=== PATIENT | female | born 1935 | race Caucasian/White ===

== ENCOUNTER → 2017-08-04 | Outpatient (CLI) | payer OTHER ==
[~2017-08-04] MED LIST: ALBUAER19 INH; ASPI-461 PO; ATOR10TA82 PO; CALC-20 PO; MILK200C PO; MULTCAP42 PO; NSNN50; OMEG1400 PO; OMEP40CA PO
--- NOTE | 2017-08-04 14:24 | MAMMOGRAPHY REPORT ---
BILATERAL DIGITAL DIAGNOSTIC MAMMOGRAM TOMOSYNTHESIS WITH CAD AND TARGETED RIGHT ULTRASOUND: 8 CLINICAL HISTORY: 82-year-old woman presents with a complaint of "soreness to touch" and "tenderness" in the far superior right upper outer breast/axillary region. She noticed the soreness began around the time of an ear infection of the right ear. She reports feeling much better currently. No defin ite lumps or evidence of skin erythema. Also due for bilateral mammography. TECHNIQUE: Bilateral breast tomosynthesis in addition to standard 2D mammography was performed. Curre nt study was also evaluated with a Computer Aided Detection (CAD) system. COMPARISON: Comparison is made to exams dated: 11/22/2015 mammogram, 08/09/2013 mammogram, 07/06/2012 m ammogram, 02/26/2011 mammogram - [facility], 10/23/2008, and 10/11/2007. BREAST COMPOSITION: There are scattered areas of fibroglandular density in both breasts. FINDINGS: There are mild vascular calcifications and a few benign coarse calcifications in the breast s. No suspicious mass, architectural distortion or cluster of suspicious microcalcifications is seen . Targeted ultrasound was performed in the areas of tenderness and soreness near the right axilla. In the areas of concern, sonographically normal subcutaneous tissues and pectoralis muscles are identifi ed. There is no evidence of suspicious lymphadenopathy, suspicious mass or drainable fluid collectio n. IMPRESSION: ACR BI-RADS CATEGORY 2: BENIGN, TARGETED ULTRASOUND ACR BI-RADS CATEGORY 2: BENIGN 1. There is no suspicious mammographic or targeted sonographic abnormality in the areas of soreness a nd tenderness near the right axilla. Therefore, continued clinical follow-up is recommended, as biop sy of a clinically suspicious mass should not be precluded by negative imaging. 2. Stable bilateral mammograms, without mammographic evidence of malignancy. Recommend routine scre ening mammography in 1 year. These results and recommendations were discussed with the patient at the time of the exam. Approximately 10% of breast cancers are not detected with mammography. A negative mammographic report should not delay biopsy if a clinically suggestive mass is present. Cira Finn M.D. ay/:08/04/2017 14:16:13 Weatherization Technician: Nila LEYVA(Gin)(Sabrina), [facility] letter sent: Normal /2 BI-RADS Code: ACR BI-RADS Category 2: Benign Ultrasound BI-RADS: ACR BI-RADS Category 2: Benign
== END | disposition home or self-care (01) ==
LOC: C.MAMM 13:26
PROVIDERS: ATTEND Family Medicine
DX: N64.4 Mastodynia (principal)

== ENCOUNTER 2017-11-16 12:22 | Emergency (ER) | payer OTHER ==
[~2017-11-16] VITALS: Ht 157.5 cm; Wt 56.1 kg
[2017-11-16 12:30] VITALS: TEMP 36.7; Ht 157.5 cm; Wt 56.1 kg
[2017-11-16 13:10] VITALS: O2SAT 96
[2017-11-16] MEDS ORDERED: SODIUM CHLORIDE 0.9% 500ML 500 ML IV STA (13:13)
--- NOTE | 2017-11-16 13:16 | EMERGENCY ROOM VISIT NOTE ---
History Report prepared by Alexandra: Colby Wade Under the Supervision of: Dr. Dillan Julien M.D. First contact with patient: 12:54 Chief Complaint: DIZZY Stated Complaint: DIZZY/FACIAL NUMBNESS Nursing Triage Summary: Patient presents to ED via ALS from home. Patient reports she was sitting in her recliner at home when she felt dizzy, had numbness in her upper lip and face, and tingling in both of her legs. Patient reports that this has been happening off and on Since August 20, 2017. Patient has seen her PCP, but did not tell him that she was having these symptoms. She was diagnosed with Thrush and finished Oral Nystatin 7 days ago. Patient says she is concerned that this medication could be causing her symptoms today. Symptoms have resolved and patient has no complaints at this time. Patient denies any chest pain, shortness of breath, weakness, changes in vision or speech or trouble with balance or ambulation with this episode of dizziness. Pre-hospital BS. History of Present Illness The patient is an 82 year old female who presents to the Emergency Room with complaints of dizziness that occurred at about 1100 today. The patient reports that she has had intermittent dizziness since the middle of August but reports that her dizziness worsened today. The patient also reports having tingling in her legs and that she was sitting for about a half hour when these symptoms began. She also states that she has a headache but denies fever, chill, congestion, nausea, vomiting, and diarrhea. The patient states that she normally does not get headaches. She reports that she did eat breakfast and lunch today. She did report that she had thrush that was found after doing cultures in her mouth. She reports that she was prescribed Nystatin for this but that she finished it about 1 week ago. She still reports having a "bad taste in her mouth." The patient reports that she did not call her doctor today. Source of History: patient Onset: 2 hours ago Position: other (generalized) Quality: other (dizziness) Timing: worsening Associated Symptoms: + headache, + numbness (tingling), No fevers, No chills , No nausea, No vomiting, No diarrhea Review of Systems See HPI for pertinent positives and negatives. A total of ten systems were reviewed and were otherwise negative. Past Medical & Surgical Medical Problems: (1) No active medical problems Family History Patient reports no known family medical history. Social History Smoking Status: Former Smoker Marital Status: Housing Status: lives with family Occupation Status: retired Current/Historical Medications Scheduled Aspirin (Aspirin), 81 MG PO Q2D Calcium Carbonate-Vitamin D (Calcium 600 + D), 1 TAB PO QAM Multiple Vitamin (Multivitamins), 1 CAP PO QAM Hol[place]-3 Fatty Acids ([place]brook-3), 1 CAP PO QAM Omeprazole (Prilosec), 20 MG PO QAM Scheduled PRN Albuterol Inhaler (Ventolin Inhaler), 2 PUFFS INH QID PRN for SOB/Wheezing Allergies Coded Allergies: Sulfa Antibiotics (Verified Allergy, Unknown, UNKNOWN, 11/16/17) Fluticasone (Unverified Adverse Reaction, Intermediate, YEAST INFECTION, ) Physical Exam Vital Signs Date Time Temp Pulse Resp B/P (MAP) Pulse Ox O2 Delivery O2 Flow Rate FiO2 11/16/17 15:33 85 172/84 94 11/16/17 14:24 78 147/72 96 Room Air 11/16/17 13:10 96 Room Air 11/16/17 12:38 77 11/16/17 12:30 36.7 79 18 171/104 96 Room Air Physical Exam GENERAL: Awake, alert, fatigued-appearing, in no distress HENT: Normocephalic, atraumatic. Oropharynx unremarkable. Mucous membranes are dry. EYES: Normal conjunctiva. Sclera non-icteric. NECK: Supple. No nuchal rigidity. FROM. No JVD. RESPIRATORY: Clear to auscultation. CARDIAC: Regular rate, normal rhythm. Extremities warm and well perfused. Pulses equal. ABDOMEN: Soft, non-distended. No tenderness to palpation. No rebound or guarding. No masses. RECTAL: Deferred. MUSCULOSKELETAL: Chest examination reveals no tenderness. The back is symmetrical on inspection without obvious abnormality. There is no CVA tenderness to palpation. No joint edema. LOWER EXTREMITIES: Calves are equal size bilaterally and non-tender. No edema. No discoloration. NEURO: Normal sensorium. No sensory or motor deficits noted. normal cerebellar function with [id number], alternating palms, [id number] SKIN: No rash or jaundice noted. Medical Decision & Procedures ER Provider Diagnostic Interpretation: Radiology results as stated below per my review and radiologist interpretation: CT OF THE HEAD WITHOUT CONTRAST CLINICAL HISTORY: Dizziness. COMPARISON STUDY: Head CT September 04, 2013. CT DOSE: 638.56 mGycm TECHNIQUE: Helical axial images of the head were obtained without IV contrast. Automated exposure control was utilized for the study. A dose lowering technique was utilized adhering to the principles of ALARA. FINDINGS: No acute intracranial hemorrhage, midline shift or mass effect is present. Ventricular system is normal. Brain volume is normal. Basilar cisterns are patent. There are no extra-axial collections. Scattered white matter hypodensities are unchanged. There are no findings to suggest acute dural sinus thrombosis or acute territorial infarct. No significant calvarial abnormalities are present. Right mastoid air cells are partially opacified. This has slightly increased when compared to exam of September 04, 2013. Left mastoid air cells are clear. IMPRESSION: 1. No acute intracranial findings. 2. Partially opacified right mastoid air cells which has slightly increased when compared to exam of September 04, 2013. Electronically signed by: Heladio Nuñez M.D. 11/16/2017 2:12 PM Dictated Date/Time: 11/16/2017 2:10 PM CHEST ONE VIEW PORTABLE CLINICAL HISTORY: CHEST PAIN dyspnea COMPARISON STUDY: 09/04/2013 FINDINGS: The bones soft tissues and hemidiaphragms are normal. The cardiomediastinal silhouette is normal. The lungs are clear. The pulmonary vasculature is normal. IMPRESSION: Negative chest. The above report was generated using voice recognition software. It may contain grammatical, syntax or spelling errors. Electronically signed by: Mark Kern M.D. 11/16/2017 1:42 PM Dictated Date/Time: 11/16/2017 1:42 PM Laboratory Results 11/16/17 13:18 Red Blood Count 5.13, Mean Corpuscular Volume 89.5, Mean Corpuscular Hemoglobin 30.6, Mean Corpuscular Hemoglobin Concent 34.2, Mean Platelet Volume 10.5, Neutrophils (%) (Auto) 69.4, Lymphocytes (%) (Auto) 23.5, Monocytes (%) (Auto) 5.5, Eosinophils (%) (Auto) 0.9, Basophils (%) (Auto) 0.6, Neutrophils # (Auto) 4.69, Lymphocytes # (Auto) 1.59, Monocytes # (Auto) 0.37, Eosinophils # (Auto) 0.06, Basophils # (Auto) 0.04 11/16/17 13:18 Test 11/16/17 13:18 11/16/17 13:26 White Blood Count 6.76 K/uL (4.8-10.8) Red Blood Count 5.13 M/uL (4.2-5.4) Hemoglobin 15.7 g/dL (12.0-16.0) Hematocrit 45.9 % (37-47) Mean Corpuscular Volume 89.5 fL (80-100) Mean Corpuscular Hemoglobin 30.6 pg (25-34) Mean Corpuscular Hemoglobin Concent 34.2 g/dl (32-36) Platelet Count 279 K/uL (130-400) Mean Platelet Volume 10.5 fL (7.4-10.4) Neutrophils (%) (Auto) 69.4 % Lymphocytes (%) (Auto) 23.5 % Monocytes (%) (Auto) 5.5 % Eosinophils (%) (Auto) 0.9 % Basophils (%) (Auto) 0.6 % Neutrophils # (Auto) 4.69 K/uL (1.4-6.5) Lymphocytes # (Auto) 1.59 K/uL (1.2-3.4) Monocytes # (Auto) 0.37 K/uL (0.11-0.59) Eosinophils # (Auto) 0.06 K/uL (0-0.5) Basophils # (Auto) 0.04 K/uL (0-0.2) RDW Standard Deviation 42.0 fL (36.4-46.3) RDW Coefficient of Variation 12.8 % (11.5-14.5) Immature Granulocyte % (Auto) 0.1 % Immature Granulocyte # (Auto) 0.01 K/uL (0.00-0.02) Anion Gap 5.0 mmol/L (3-11) Est Creatinine Clear Calc Drug Dose 44.4 ml/min Estimated GFR () 84.1 Estimated GFR (Non- 72.5 BUN/Creatinine Ratio 14.8 (10-20) Calcium Level 9.4 mg/dl (8.5-10.1) Phosphorus Level 3.3 mg/dl (2.5-4.9) Magnesium Level 2.4 mg/dl (1.8-2.4) Total Bilirubin 0.8 mg/dl (0.2-1) Direct Bilirubin 0.2 mg/dl (0-0.2) Aspartate Amino Transf (AST/SGOT) 15 U/L (15-37) Alanine Aminotransferase (ALT/SGPT) 22 U/L (12-78) Alkaline Phosphatase 47 U/L (45-117) Troponin I < 0.015 ng/ml (0-0.045) Pro-B-Type Natriuretic Peptide 98 pg/ml (0-1800) Total Protein 7.7 gm/dl (6.4-8.2) Albumin 4.1 gm/dl (3.4-5.0) Lipase 283 U/L (73-393) Urine Color YELLOW Urine Appearance CLEAR (CLEAR) Urine pH 6.5 (4.5-7.5) Urine Specific [place] 1.010 (1.000-1.030) Urine Protein NEG (NEG) Urine Glucose (UA) NEG (NEG) Urine Ketones 1+ (NEG) Urine Occult Blood NEG (NEG) Urine Nitrite NEG (NEG) Urine Bilirubin NEG (NEG) Urine Urobilinogen NEG (NEG) Urine Leukocyte Esterase NEG (NEG) Laboratory results reviewed by me Medications Administered Medications (Trade) Dose Ordered Sig/Tita Route Start Time Stop Time Status Last Admin Dose Admin Sodium Chloride 500 ml @ 999 mls/hr Q31M STAT IV 11/16/17 13:13 11/16/17 13:43 DC 11/16/17 13:30 999 MLS/HR ECG Per My Interpretation Indication: other (Dizziness) Rate (beats per minute): 79 Rhythm: normal sinus Findings: no acute ischemic change, other (Normal axis) ED Course 1306: The patient was evaluated in room B11B. A complete history and physical exam was performed. 1452: I reevaluated the patient 1530: I reevaluated the patient. Discussed results and discharge instructions: She verbalized understanding and agreement. The patient is ready for discharge. Medical Decision I reviewed the patient's past medical history, medications, and the nursing notes as described above. Differential diagnosis: Etiologies such as benign positional vertigo, dehydration, hypovolemia, anemia, tumor, infection, hypoglycemia, electrolyte abnormalities, cardiac sources, intracerebral event, toxicologic, neurologic, as well as others were entertained. The patient is an 82-year-old woman with a past medical history of GERD and recent treatment for candidal esophagitis who presents emergency department with complaint of intermittent dizziness, tingling in her face that has been ongoing since August, today with associated with bilateral upper leg tingling that occurred briefly and resolved per hpi. On arrival the patient is well- appearing in no acute distress, afebrile with stable vital signs. On exam, the patient appears clinically dry. Patient is neurologically intact including normal cerebellar function with [id number]-[id number], alternating palms, heel-to- matamoros. EKG unremarkable. Chest x-ray negative. CT head without acute findings. WBC within normal limits. Chemistry unremarkable. UA negative. Patient feeling improved after IV fluid hydration although she did not really have any symptoms in the ED. Symptoms possibly related to mild dehydration. Plan for PCP follow-up. Findings and plan for follow-up reviewed with patient. Patient agreeable and d/c'd per discharge instructions. Medication Reconcilliation Current Medication List: was personally reviewed by me Blood Pressure Screening Patient's blood pressure: Elevated blood pressure Blood pressure disposition: Referred to PCP Impression Primary Impression: Dizziness Additional Impression: Dehydration Scribe Attestation The scribe's documentation has been prepared under my direction and personally reviewed by me in its entirety. I confirm that the note above accurately reflects all work, treatment, procedures, and medical decision making performed by me. Departure Information Dispostion Home / Self-Care Referrals Andriy Briggs M.D. (PCP) Forms HOME CARE DOCUMENTATION FORM, IMPORTANT VISIT INFORMATION Patient Instructions Dizziness Fainting Poss Causes, ED Near Syncope Unkn, My [facility] Additional Instructions Please follow up with your primary care physician in the next 1-3 days for re- evaluation. Your symptoms are possibly due to mild dehydration. Otherwise, your exam, EKG, chest xray, CT scan of your head, and lab results did not show signs of an emergent condition at this time. Drink plenty of fluids to ensure hydration. Return to the emergency department for worsening symptoms as described in the accompanying instructions. Problem Qualifiers
[2017-11-16 13:31] LABS: BASO % 0.6 %; BASO ABS # 0.04 K/uL (0-0.2); EOS % 0.9 %; EOS ABS # 0.06 K/uL (0-0.5); HEMATOCRIT 45.9 % (37-47); HEMOGLOBIN 15.7 g/dL (12.0-16.0); IG# 0.01 K/uL (0.00-0.02); LYMPH % 23.5 %; LYMPH ABS # 1.59 K/uL (1.2-3.4); MEAN CELL VOLUME 89.5 fL (80-100); MEAN CORPUSCULAR HEMOGLOBIN 30.6 pg (25-34); MEAN CORPUSCULAR HGB CONC 34.2 g/dl (32-36); MEAN PLATELET VOLUME 10.5 fL (7.4-10.4); MONO % 5.5 %; MONO ABS # 0.37 K/uL (0.11-0.59); NEUT % 69.4 %; NEUT ABS # 4.69 K/uL (1.4-6.5); PLATELET COUNT 279 K/uL (130-400); RED CELL DISTRIBUTION WIDTH CV 12.8 % (11.5-14.5); WHITE BLOOD COUNT 6.76 K/uL (4.8-10.8)
--- NOTE | 2017-11-16 13:44 | DIAGNOSTIC IMAGING REPORT ---
CHEST ONE VIEW PORTABLE CLINICAL HISTORY: CHEST PAIN dyspnea COMPARISON STUDY: 09/04/2013 FINDINGS: The bones soft tissues and hemidiaphragms are normal. The cardiomediastinal silhouette is normal. The lungs are clear. The pulmonary vasculature is normal. IMPRESSION: Negative chest. The above report was generated using voice recognition software. It may contain grammatical, syntax or spelling errors. Electronically signed by: Mark Kern M.D. 11/16/2017 1:42 PM Dictated Date/Time: 11/16/2017 1:42 PM
[2017-11-16 13:50] LABS: ALBUMIN 4.1 gm/dl (3.4-5.0); ALKALINE PHOSPHATASE 47 U/L (45-117); ALT/SGPT 22 U/L (12-78); AST/SGOT 15 U/L (15-37); BLOOD UREA NITROGEN 11 mg/dl (7-18); CALCIUM 9.4 mg/dl (8.5-10.1); CARBON DIOXIDE 30 mmol/L (21-32); CREATININE 0.76 mg/dl (0.60-1.20); GLUCOSE 103 mg/dl (70-99); LIPASE 283 U/L (73-393); PHOSPHORUS 3.3 mg/dl (2.5-4.9); POTASSIUM 4.1 mmol/L (3.5-5.1); SODIUM 133 mmol/L (136-145); TOTAL PROTEIN 7.7 gm/dl (6.4-8.2)
--- NOTE | 2017-11-16 14:14 | DIAGNOSTIC IMAGING REPORT ---
CT OF THE HEAD WITHOUT CONTRAST CLINICAL HISTORY: Dizziness. COMPARISON STUDY: Head CT September 04, 2013. CT DOSE: 638.56 mGycm TECHNIQUE: Helical axial images of the head were obtained without IV contrast. Automated exposure control was utilized for the study. A dose lowering technique was utilized adhering to the principles of ALARA. FINDINGS: No acute intracranial hemorrhage, midline shift or mass effect is present. Ventricular system is normal. Brain volume is normal. Basilar cisterns are patent. There are no extra-axial collections. Scattered white matter hypodensities are unchanged. There are no findings to suggest acute dural sinus thrombosis or acute territorial infarct. No significant calvarial abnormalities are present. Right mastoid air cells are partially opacified. This has slightly increased when compared to exam of September 04, 2013. Left mastoid air cells are clear. IMPRESSION: 1. No acute intracranial findings. 2. Partially opacified right mastoid air cells which has slightly increased when compared to exam of September 04, 2013. Electronically signed by: Heladio Nuñez M.D. 11/16/2017 2:12 PM Dictated Date/Time: 11/16/2017 2:10 PM
[2017-11-16] MEDS ORDERED: PRLSR20 PO (14:18)
[2017-11-16 15:33] VITALS: BP 172/84; PULSE 85; O2SAT 94
== END 2017-11-16 15:34 | disposition home or self-care (01) ==
LOC: EDBD 12:22 → C.EDB 12:23
DX: R42 Dizziness and giddiness (principal); E86.0 Dehydration; R20.2 Paresthesia of skin; R51 Headache; K21.9 Gastro-esophageal reflux disease without esophagitis; Z87.891 Personal history of nicotine dependence; Z79.82 Long term (current) use of aspirin; Z88.2 Allergy status to sulfonamides; Z88.8 Allergy status to other drugs, medicaments and biological substances; Z79.899 Other long term (current) drug therapy

== ENCOUNTER 2021-01-19 11:36 | Inpatient (IN) ==
[2021-01-19] MEDS ORDERED: ONDANSETRON INJ 2 MG/ML 2 ML VIAL IV STA (11:58)
[2021-01-19] MEDS ORDERED: SODIUM CHLORIDE 0.9% 500 ML IV STA (11:58)
--- NOTE | 2021-01-19 12:06 | Emergency Department Note ---
Impression & Plan Diffuse abdominal pain, Colon obstruction, Acute hyponatremia, Abdominal distension ED Provider Note NAME: DAPHNE ROCHA AGE: 85 SEX: F : 1935 ARRIVES VIA: Ambulance INFORMANT: [Patient] ED PROVIDER(S): [Bijan Shelton MD] CHIEF COMPLAINT: Abdominal pain HISTORY OF PRESENT ILLNESS: The patient is an 85-year-old female presents to the ER with diffuse abdominal p ain. She has not had a bowel movement in 4 to 5 days. She feels quite bloated. The pain is a 9/10 and is constant. No urinary complaints. She has been nauseated. No fever, cough, congestion or chest pain. No urinary complaints. She thought she was constipated so she has been trying some kdyb-guw-wnyvysl meds without any result. Of note, the patient is using tramadol for some rib fractures. She has no issues with chronic constipation. REVIEW OF SYSTEMS: See HPI for pertinent positives and negatives. A total of ten systems were reviewed and were otherwise negative. PMHx/PSHx: See Below SOCIAL HISTORY: See Below. PHYSICAL EXAM: GENERAL: Patient is in no acute distress. HEENT: No acute trauma, normocephalic atraumatic, mucous membranes moist, no nasal congestion, no scleral icterus. NECK: No stridor, no adenopathy, no meningismus, trachea is midline. LUNGS: Clear to auscultation bilaterally, no wheeze, no rhonchi, breath sounds equal. HEART: Without murmurs gallops or rubs, regular rate and rhythm. ABDOMEN: Soft, diffusely mildly tender, quite distended. There is tympany with percussion. No peritonitis. EXTREMITIES: No cyanosis or edema, full range of motion of all the joints without pain or difficulty, no signs for acute trauma. NEUROLOGIC: Oriented x 3, no acute motor or sensory deficits, no focal weakness. SKIN: No rash, no jaundice, no diaphoresis. Rectal: No stool in the rectal vault. DIFFERENTIAL DIAGNOSIS: Appendicitis, ovarian cyst, ovarian torsion, diverticulitis, UTI, obstruction, mesenteric ischemia, aortic pathology, inflammatory bowel disease, renal colic, PUD, pancreatitis, biliary pathology, hernia, volvulus, constipation, as well as other pathologies. EMERGENCY DEPARTMENT COURSE/PROCEDURES: ECG: Indication was abdominal pain. The ECG shows a normal sinus rhythm with a left bundle branch block. The rate is eighty-two. There is no worrisome ST elevation, no PVCs. The QTc is 467. Compared to an ECG from 17 July 2020, there is no significant change. Continuous Cardiac Monitoring: An order was placed for continuous cardiac monitoring. The monitor shows a rate of 96 with normal sinus rhythm. MEDICAL DECISION MAKING: There is a moderate leukocytosis at 14,000, this could be consistent with infection or her pain. There was a normal hemoglobin and platelet count. Sodium was low at 128, no kidney failure. No concerning liver enzyme elevation. No evidence for pancreatitis. ECG shows a normal sinus rhythm, no acute ischemia. Cardiac enzyme testing x1 is not consistent with acute cardiac injury. Urinalysis shows some contamination, no obvious infection. Chest film shows some atelectasis, no pneumonia or free air. Abdominal and pelvis CT shows a colonic obstruction versus ileus. There were air-fluid levels in the colon. No small bowel obstruction. The patient received IV saline, 1 L. She was given IV Zofran, IV morphine. She was given a Dulcolax suppository. The patient has a colonic obstruction or partial obstruction. The cause is unclear. She is hyponatremic. The patient requires a hospital stay and further work-up. I did speak with GI. They suggested some fleets enemas and Dulcolax suppositories. I did speak with case management, I spoke with the patient. The on-call hospitalist was consulted. Of note, the patient did have a small bowel movement while here, she felt somewhat improved. Past Med/Surg History Medical History Anxiety Chronic headaches Chronic obstructive pulmonary disease USES INH 3-4 TIMES PER WEEK Diabetes mellitus, type 2 DIET CONTROLLED GERD (gastroesophageal reflux disease) Hyperlipidemia Osteoarthritis Vertigo Surgical History History of dilatation and curettage History of facial surgery 1969 History of tooth extraction Hx of cataract surgery RIGHT Social History Smoking Status: Former smoker Tobacco Type: Cigarettes Second Hand Exposure: No; Hx Alcohol Use: No Hx Substance Use: No Preferred Language: Citizen Of [place] Communication Ability: Effective Wrapper Stripper Required: No Beliefs That Will Affect Care: None Current Living Situation: Spouse Feels Safe at Home: Yes Assistive Devices: Denture - Upper, Denture - Lower and Glasses Allergies Allergies Allergy/AdvReac Type Severity Reaction Status Date / Time Sulfa (Sulfonamide Allergy Unknown UNKNOWN Verified 01/19/21 12:34 Antibiotics) fluticasone AdvReac Intermediate YEAST Verified 01/19/21 12:34 INFECTION Home Meds Home Medications Medication Instructions Recorded Confirmed albuterol sulfate 90 mcg/actuation 2 puff INHALATION QID PRN 12/21/17 01/19/21 aerosol inhaler (Ventolin HFA) aspirin 81 mg tablet,delayed 81 mg PO Q2D 12/21/17 01/19/21 release calcium carbonate-vitamin D3 600 1 cap PO QAM 12/21/17 01/19/21 mg calcium-200 unit capsule (Calcium 600 + D(3)) multivitamin 1 tab PO QAM 12/21/17 01/19/21 amlodipine 2.5 mg tablet 2.5 mg PO HS 01/16/21 01/19/21 omeprazole 20 mg capsule,delayed 20 mg PO DAILYBB 01/16/21 01/19/21 release tramadol 50 mg tablet 50 mg PO Q6 PRN 01/16/21 01/19/21 lactobacillus combination no.4 3 3,000 mmu cells PO QAM 01/19/21 01/19/21 billion cell capsule (Probiotic) Results & Data (ED) Vital Signs Vital Signs - 24 hr 01/19/21 11:40 01/19/21 12:20 01/19/21 12:35 Temperature 37.5 C Temperature Source Oral Pulse Rate 89 80 Pulse Rate [Left Apical] 82 Respiratory Rate 20 18 16 Blood Pressure 141/88 H Blood Pressure [Right Arm] 157/77 H Blood Pressure Mean 105 Blood Pressure Mean [Right Arm] 103 Pulse Oximetry 92 90 91 Oxygen Delivery Method Room Air Room Air Room Air Sepsis Recent Fever Within 48 Hours No Sepsis New/Unexplained Change in Mental Status N/A Sepsis Action Taken by Nursing No Action Required 01/19/21 13:00 01/19/21 16:00 Temperature Temperature Source Pulse Rate 87 Pulse Rate [Left Apical] 96 H Respiratory Rate 19 16 Blood Pressure 167/86 H Blood Pressure [Right Arm] 158/69 H Blood Pressure Mean 113 Blood Pressure Mean [Right Arm] 98 Pulse Oximetry 92 94 Oxygen Delivery Method Room Air Sepsis Recent Fever Within 48 Hours Sepsis New/Unexplained Change in Mental Status Sepsis Action Taken by Shelter Medications Current Medication List: was personally reviewed by me Laboratory Data Attestation: I reviewed the patient's lab results. Result diagrams: 01/19/21 14:53 01/19/21 14:53 Lab Results 01/19/21 01/19/21 01/19/21 Range/Units 12:00 14:53 14:53 WBC 14.19 H (4.8-10.8) K/uL RBC 4.52 (4.2-5.4) M/uL Hgb 13.6 (12.0-16.0) g/dL Hct 40.2 (37-47) % MCV 88.9 (80-100) fL MCH 30.1 (25-34) pg MCHC 33.8 (32-36) g/dL RDW Std Deviation 41.5 (36.4-46.3) fL RDW Coeff of Fernando 12.8 (11.5-14.5) % Plt Count 259 (130-400) K/uL MPV 10.3 (7.4-10.4) fL Immature Gran % (Auto) 0.6 % Neut % (Auto) 93.7 % Lymph % (Auto) 5.0 % Mills % (Auto) 0.5 % Eos % (Auto) 0.1 % Baso % (Auto) 0.1 % Neut # (Auto) 13.31 H (1.4-6.5) K/uL Lymph # (Auto) 0.71 L (1.2-3.4) K/uL Mills # (Auto) 0.07 L (0.11-0.59) K/uL Eos # (Auto) 0.01 (0-0.5) K/uL Baso # (Auto) 0.01 (0-0.2) K/uL Immature Gran # (Auto) 0.08 H (0.00-0.02) K/uL Sodium 128 L (136-145) mmol/L Potassium 3.9 (3.5-5.1) mmol/L Chloride 89 L (98-107) mmol/L Carbon Dioxide 33 H (21-32) mmol/L Anion Gap 6.0 (3-11) BUN 11 (7-18) mg/dl Creatinine 0.79 (0.6-1.2) mg/dl Est Cr Clr Drug Dosing 42.3 ml/min Est GFR ( Amer) 78.6 ml/min Est GFR (Non-Af Amer) 67.8 ml/min BUN/Creatinine Ratio 14.0 (10-20) Glucose 147 H (70-99) mg/dl Calcium 9.2 (8.5-10.1) mg/dl Total Bilirubin 1.6 H (0.2-1) mg/dl AST 25 (15-37) U/L ALT 28 (12-78) U/L Alkaline Phosphatase 69 (45-117) U/L Troponin I < 0.015 (0-0.045) ng/ml Total Protein 7.5 (6.4-8.2) gm/dl Albumin 3.4 (3.4-5.0) gm/dl Globulin 4.1 H (2.5-4.0) gm/dl Albumin/Globulin Ratio 0.8 L (0.9-2) Lipase 103 (73-393) U/L Urine Color Dark Yellow Urine Appearance Turbid A (Clear) Urine pH 6.5 (4.5-7.5) Ur Specific [place] 1.023 (1.000-1.030) Urine Protein 1+ H (Negative) Urine Glucose (UA) Trace H (Negative) Urine Ketones Trace H (Negative) Urine Blood Negative (Negative) Urine Nitrite Negative (Negative) Urine Bilirubin Negative (Negative) Urine Urobilinogen Negative (Negative) Ur Leukocyte Esterase Negative (Negative) Urine WBC (Auto) 1-5 (0-5) /hpf Urine RBC (Auto) 5-10 H (0-4) /hpf U Hyaline Cast (Auto) 1-5 (0-5) /lpf U Epithel Cells (Auto) 10-20 H (0-5) /lpf Urine Bacteria (Auto) Negative (Negative) Administered Medications Morphine Sulfate (Morphine Sulfate 4 Mg/Ml 1 Ml Carp\Vial) 2 mg IV Q15M PRN PRN Reason: Pain Stop: 02/02/21 11:57 Last Admin: 01/19/21 13:52 Dose: 2 mg Documented by: [id number] Discontinued Medications Sodium Chloride (Nss) 500 mls @ 999 mls/hr IV .Q31M STA Stop: 01/19/21 12:28 Last Infusion: 01/19/21 13:50 Dose: 0 mls/hr Documented by: [id number] Admin: 01/19/21 12:21 Dose: 999 mls/hr Documented by: [id number] Sodium Chloride (Nss 1000ml) 500 mls @ 999 mls/hr IV .Q31M ONE Stop: 01/19/21 16:28 Last Admin: 01/19/21 16:20 Dose: 999 mls/hr Documented by: [id number] Ioversol (Optiray 320 100ml) 67 ml IV ONCE ONE Stop: 01/19/21 15:58 Last Admin: 01/19/21 15:58 Dose: 67 ml Documented by: [id number] Ondansetron HCl (Ondansetron Inj 2 Mg/Ml 2 Ml Vial) 4 mg IV NOW STA Stop: 01/19/21 11:59 Last Admin: 01/19/21 12:21 Dose: 4 mg Documented by: [id number] Imaging Data Radiologist's Impression: Abdomen/Pelvis CT 01/19/21 11:[address] WITH IV CONTRAST CT DOSE: 272.05 mGy.cm HISTORY: Acute abdominal pain with bloating pain, bloating TECHNIQUE: Multiaxial CT images of the abdomen and pelvis were performed following the IV administration of 67 cc of Optiray, A dose lowering technique was utilized adhering to the principles of ALARA. COMPARISON STUDY: CTA chest 01/16/2021 FINDINGS: Coronary artery and mitral annular calcifications. The imaged inferior cardiac chambers are unremarkable. Small pleural effusions. Right basilar mucous plugging with subsegmental consolidation. No pneumatosis or pneumoperitoneum. Unremarkable spleen, and pancreas. Equivocal cholelithiasis. No CT evidence of a cute cholecystitis. Unremarkable liver. Patency of the hepatic and portal veins. Mild thickening of the right adrenal gland suggestive of hyperplasia. 2.5 cm left adrenal gland lesion with central macroscopic fat attenuation suggestive of a myelolipoma. Nonspecific bilateral perinephric stranding. Bilateral renal cysts measure up to 5.1 cm on the left. 6 linear nonobstructing calculus of the interpolar left kidney. No ureteral calculi or hydronephrosis. Partially decompressed urinary bladder. Pelvic floor relaxation. Unremarkable uterus and adnexa. Severe atherosclerosis of the aorta without aneurysm. No adenopathy. Tiny hiatal hernia. No small bowel obstruction or bowel wall thickening. Extensive colonic diverticulosis. Air and fluid-filled loops of large bowel are noted with distended cecum measuring up to 7.6 cm. Normal appendix. Transitioned narrowing of the proximal sigmoid colon. No discrete mass identified. Unremarkable soft tissues. Degenerative changes of the spine, pelvis and hips. Mild lumbar levoscoliosis. IMPRESSION: 1. Fluid-filled distended loops of large bowel with smooth transition narrowing at the proximal sigmoid colon. No obstructing mass or lesion identified. Findings may be secondary to colonic ileus/diarrheal illness with obstructing lesion considered less likely. If symptoms persist, follow-up colonoscopy may be considered. 2. Colonic diverticulosis without acute diverticulitis. 3. Nonobstructing left nephrolithiasis. 4. Additional findings as above. ACT 112: Negative or not required by law. The above report was generated using voice recognition software. It may contain grammatical, syntax or spelling errors. Electronically signed by: Duane Gonzalez M.D. 01/19/2021 4:38 PM Chest X-Ray 01/19/21 11:59 XR chest 1V portable HISTORY: 85 years-old Female abd pain acute chest and abdominal pain COMPARISON: Chest and rib radiographs 11/10/2020 TECHNIQUE: Portable AP view the chest FINDINGS: Cardiac silhouette is enlarged. Calcified plaque the thoracic aorta. Mitral annular calcifications. Trace pleural effusions with mild linear bibasilar densi ties. Chronic interstitial coarsening. No pneumothorax or overt pulmonary edema. Degenerative changes of the shoulders and spine. IMPRESSION: 1. Cardiomegaly without overt pulmonary edema. 2. Trace pleural effusions with linear bibasilar opacities suggestive of atelectasis. ACT 112: Negative or not required by law. The above report was generated using voice recognition software. It may contain grammatical, syntax or spelling errors. Electronically signed by: Duane Gonzalez M.D. 01/19/2021 1:23 PM Discharge Plan Visit Data Chief Complaint: Abdominal Pain ED Provider: Bijan Shelton Discharge Problem: Diffuse abdominal pain, Colon obstruction, Acute hyponatremia, Abdominal distension Patient Disposition: Admitted As Inpatient Condition: Fair Forms Stand Alone Forms: [facility], [facility] Emergency Department, Important Visit Information Prescriptions Prescriptions: No Action multivitamin Tablet 1 tab PO QAM RF: 0 aspirin 81 mg Tablet,Delayed Release (Dr/Ec) 81 mg PO Q2D RF: 0 albuterol sulfate [Ventolin HFA] 90 mcg/actuation Hfa Aerosol Inhaler 2 puff INHALATION QID PRN (Reason: Shortness Of Breath) RF: 0 Calcium 600 + D(3) 600 mg calcium- 200 unit Capsule 1 cap PO QAM RF: 0 Probiotic 3 billion cell Capsule 3,000 mmu cells PO QAM RF: 0 amlodipine 2.5 mg tablet 2.5 mg PO HS RF: 0 tramadol 50 mg tablet 50 mg PO Q6 PRN (Reason: Pain) RF: 0 omeprazole 20 mg capsule,delayed release(DR/EC) 20 mg PO DAILYBB RF: 0 Referrals Referrals: Andriy Briggs MD [Primary Care Provider] -
[2021-01-19 12:48] LABS: Appearance Urine Turbid (Clear); Bacteria Urine Automated Negative (Negative); Bilirubin Urine Negative (Negative); Blood Urine Negative (Negative); Color Urine Dark Yellow; Glucose Urine UA Trace (Negative); Ketones Urine Trace (Negative); Leukocyte Esterase Urine Negative (Negative); Nitrite Urine Negative (Negative); Protein Urine 1+ (Negative); Specific Gravity Urine 1.023 (1.000-1.030); Urobilinogen Urine Negative (Negative); pH Urine 6.5 (4.5-7.5)
--- NOTE | 2021-01-19 13:24 | XRay Report ---
XR chest 1V portable HISTORY: 85 years-old Female abd pain acute chest and abdominal pain COMPARISON: Chest and rib radiographs 11/10/2020 TECHNIQUE: Portable AP view the chest FINDINGS: Cardiac silhouette is enlarged. Calcified plaque the thoracic aorta. Mitral annular calcifications. T race pleural effusions with mild linear bibasilar densities. Chronic interstitial coarsening. No pneu mothorax or overt pulmonary edema. Degenerative changes of the shoulders and spine. IMPRESSION: 1. Cardiomegaly without overt pulmonary edema. 2. Trace pleural effusions with linear bibasilar opacities suggestive of atelectasis. ACT 112: Negative or not required by law. The above report was generated using voice recognition software. It may contain grammatical, syntax o r spelling errors. Electronically signed by: Duane Gonzaelz M.D. 01/19/2021 1:23 PM
[2021-01-19] MEDS: MoRPHine SULFATE 4 MG/ML 1 ML CARP\\VIAL IV PRN (13:52)
[2021-01-19 15:04] LABS: Basophils # (auto) 0.01 K/uL (0-0.2); Basophils % (auto) 0.1 %; Eosinophils # (auto) 0.01 K/uL (0-0.5); Eosinophils % (auto) 0.1 %; Hematocrit (blood only) 40.2 % (37-47); Hemoglobin 13.6 g/dL (12.0-16.0); Immature Granulocytes # (auto) 0.08 K/uL (0.00-0.02); Immature Granulocytes % (auto) 0.6 %; Lymphocytes # (auto) 0.71 K/uL (1.2-3.4); Mean Corpuscular Hemoglobin 30.1 pg (25-34); Mean Corpuscular Hgb Conc 33.8 g/dL (32-36); Mean Corpuscular Volume 88.9 fL (80-100); Mean Platelet Volume 10.3 fL (7.4-10.4); Monocytes # (auto) 0.07 K/uL (0.11-0.59); Monocytes % (auto) 0.5 %; Neutrophils # (auto) 13.31 K/uL (1.4-6.5); Neutrophils % (auto) 93.7 %; Platelet Count 259 K/uL (130-400); RDW Coefficient of Variation 12.8 % (11.5-14.5); RDW Standard Deviation 41.5 fL (36.4-46.3); Red Blood Count 4.52 M/uL (4.2-5.4); White Blood Count 14.19 K/uL (4.8-10.8)
[2021-01-19 15:27] LABS: Alanine Aminotransferase 28 U/L (12-78); Albumin Level 3.4 gm/dl (3.4-5.0); Aspartate Aminotransferase 25 U/L (15-37); Blood Urea Nitrogen 11 mg/dl (7-18); Calcium 9.2 mg/dl (8.5-10.1); Carbon Dioxide 33 mmol/L (21-32); Chloride 89 mmol/L (98-107); Creatinine Clr Calc Pharmacy 42.3 ml/min; Est GFR (African American) 78.6 ml/min; Est GFR (Non-African American) 67.8 ml/min; Glucose 147 mg/dl (70-99); Lipase 103 U/L (73-393); Potassium 3.9 mmol/L (3.5-5.1); Sodium 128 mmol/L (136-145)
[2021-01-19 15:31] LABS: Albumin Globulin Ratio 0.8 (0.9-2); Alkaline Phosphatase 69 U/L (45-117); Bilirubin,Total 1.6 mg/dl (0.2-1); Globulin 4.1 gm/dl (2.5-4.0); Total Protein 7.5 gm/dl (6.4-8.2); Troponin I < 0.015 ng/ml (0-0.045)
[2021-01-19] MEDS ORDERED: OPTIRAY 320 100ml IV ONE (15:57)
[2021-01-19] MEDS ORDERED: SODIUM CHLORIDE 0.9% 1000ML 500 ML IV ONE (15:58)
--- NOTE | 2021-01-19 16:39 | CT Scan Report ---
ABDOMEN AND PELVIS CT WITH IV CONTRAST CT DOSE: 272.05 mGy.cm HISTORY: Acute abdominal pain with bloating pain, bloating TECHNIQUE: Multiaxial CT images of the abdomen and pelvis were performed following the IV administrat ion of 67 cc of Optiray, A dose lowering technique was utilized adhering to the principles of ALARA. COMPARISON STUDY: CTA chest 01/16/2021 FINDINGS: Coronary artery and mitral annular calcifications. The imaged inferior cardiac chambers are unremarkable. Small pleural effusions. Right basilar mucous plugging with subsegmental consolidation . No pneumatosis or pneumoperitoneum. Unremarkable spleen, and pancreas. Equivocal cholelithiasis. No CT evidence of acute cholecystitis. Unremarkable liver. Patency of the hepatic and portal veins. Mil d thickening of the right adrenal gland suggestive of hyperplasia. 2.5 cm left adrenal gland lesion w ith central macroscopic fat attenuation suggestive of a myelolipoma. Nonspecific bilateral perinephric stranding. Bilateral renal cysts measure up to 5.1 cm on the left. 6 linear nonobstructing calculus of the interpolar left kidney. No ureteral calculi or hydronephrosis . Partially decompressed urinary bladder. Pelvic floor relaxation. Unremarkable uterus and adnexa. Se uday atherosclerosis of the aorta without aneurysm. No adenopathy. Tiny hiatal hernia. No small bowel obstruction or bowel wall thickening. Extensive colonic diverticul osis. Air and fluid-filled loops of large bowel are noted with distended cecum measuring up to 7.6 cm . Normal appendix. Transitioned narrowing of the proximal sigmoid colon. No discrete mass identified. Unremarkable soft tissues. Degenerative changes of the spine, pelvis and hips. Mild lumbar levoscoli osis. IMPRESSION: 1. Fluid-filled distended loops of large bowel with smooth transition narrowing at the proximal sigmo id colon. No obstructing mass or lesion identified. Findings may be secondary to colonic ileus/diarrh eal illness with obstructing lesion considered less likely. If symptoms persist, follow-up colonoscop y may be considered. 2. Colonic diverticulosis without acute diverticulitis. 3. Nonobstructing left nephrolithiasis. 4. Additional findings as above. ACT 112: Negative or not required by law. The above report was generated using voice recognition software. It may contain grammatical, syntax o r spelling errors. Electronically signed by: Duane Gonzalez M.D. 01/19/2021 4:38 PM
[2021-01-19] MEDS ORDERED: bisacodyL 10 MG SUPP PR STA (16:55)
--- NOTE | 2021-01-19 19:23 | History & Physical Report ---
Date of Service January 19, 2021 Assessment & Plan (1) Acute hyponatremia: (2) Abdominal distension: Admission and Anticipated Discharge Date Admission Date: Constipation Abnormal proximal sigmoid colon per imaging Patient not able to move bowel since last 4 to 5 days despite trying various imea-ueo-accufgo laxatives Patient moved bowel in the ED after suppository, feeling still bloated and has right lower quadrant tenderness GI aware, recommended Fleet enema over the night, evaluation tomorrow for possible colonoscopy. N.p.o., IV fluids Hypertension Blood pressure elevated at 166/87 at presentation likely secondary to acute stress We will resume her home medication Continue to monitor Hyponatremia Sodium level at 128 at presentation likely secondary to decreased intake and vomiting Patient received IV fluids, will continue on IV fluids, monitor daily Leukocytosis Likely secondary to acute distress No fever, no signs of infection at present. Continue to monitor daily. History of Present Illness Chief Complaint: Constipation Primary Care Provider: Andriy Briggs MD 85-year-old lady with PMH of recent diagnosis of rib fracture and compression fracture of vertebrae on scheduled tramadol since last 5 days, diverticulosis, last colonoscopy in 1999 per patient, sees her doctor for leaky valve and hypertension presented to our ED 01/19 for inability to pass stool since last 4 days. Patient has tried several wwer-euh-wadosxh laxatives but could not move bowel. But patient moved bowel in the ED. GI was consulted in the ED who recommended Fleet enema over the night and evaluation for possible colonoscopy tomorrow. Patient reports belly pain but improving after movement of bowel in the ED, belly still bloated, dizziness. Patient denies any fever/headache/weakness/cough/chest pain/feeling of heart racing/increased swelling of her legs/numbness or tingling anywhere in the body/bruises or wounds anywhere in the body. Patient quit smoking in 1994, does not drink alcohol or use illegal drugs. Patient is full code. Patient has no history of belly surgery in the past. Patient vomited once prior to coming to the hospital. Allergies Allergy/AdvReac Type Severity Reaction Status Date / Time Sulfa (Sulfonamide Allergy Unknown UNKNOWN Verified 01/19/21 12:34 Antibiotics) fluticasone AdvReac Intermediate YEAST Verified 01/19/21 12:34 INFECTION Home Medications Medication Instructions Recorded Confirmed Type albuterol sulfate 90 mcg/actuation 2 puff INHALATION QID PRN 12/21/17 01/19/21 History aerosol inhaler (Ventolin HFA) aspirin 81 mg tablet,delayed 81 mg PO Q2D 12/21/17 01/19/21 History release calcium carbonate-vitamin D3 600 1 cap PO QAM 12/21/17 01/19/21 History mg calcium-200 unit capsule (Calcium 600 + D(3)) multivitamin 1 tab PO QAM 12/21/17 01/19/21 History amlodipine 2.5 mg tablet 2.5 mg PO HS 01/16/21 01/19/21 History omeprazole 20 mg capsule,delayed 20 mg PO DAILYBB 01/16/21 01/19/21 History release tramadol 50 mg tablet 50 mg PO Q6 PRN 01/16/21 01/19/21 History lactobacillus combination no.4 3 3,000 mmu cells PO QAM 01/19/21 01/19/21 History billion cell capsule (Probiotic) Past Med/Surg History Medical History Anxiety Chronic headaches Chronic obstructive pulmonary disease USES INH 3-4 TIMES PER WEEK Diabetes mellitus, type 2 DIET CONTROLLED GERD (gastroesophageal reflux disease) Hyperlipidemia Osteoarthritis Vertigo Surgical History History of dilatation and curettage History of facial surgery 1969 History of tooth extraction Hx of cataract surgery RIGHT Social History Smoking Status: Former smoker Tobacco Type: Cigarettes Second Hand Exposure: No; Hx Alcohol Use: No Hx Substance Use: No Preferred Language: Marshallese Communication Ability: Effective Adobe Layer Required: No Beliefs That Will Affect Care: None Current Living Situation: Spouse Feels Safe at Home: Yes Assistive Devices: Denture - Upper, Denture - Lower and Glasses Review of Systems Review of Systems: As depicted in the HPI. Physical Exam Physical Exam: GENERAL: Alert and oriented x3. NAD, on RA. HEENT: No pallor, no icterus. Pupils equal, round and reactive to light. Oral mucosa moist. NECK: No JVD, no neck masses. HEART: S1 and S2 heard. Regular rate and rhythm. Systolic murmur over aortic and pulmonic area, no gallop. RESPIRATORY SYSTEM: Normal AP diameter. No accessory muscle use. No wheezing, no crackles. ABDOMEN: Soft, bowel sounds present, RLQ tender, abdomen bloated with hyperactive bowel sounds. CENTRAL NERVOUS SYSTEM: Alert and oriented x3. No facial droop. Speech is clear. Obeys simple commands. Moves extremities. EXTREMITIES: 1+ BLE edema, no erythema seen. Results & Data Results & Data ([facility]) Vital Signs (Past 12 Hours) Vital Signs Temp Pulse Pulse Resp BP BP Pulse Ox 01/19/21 19:02 95 H 22 174/82 H 96 01/19/21 18:15 82 20 177/70 H 98 01/19/21 16:00 96 H 16 158/69 H 94 01/19/21 13:00 87 19 167/86 H 92 01/19/21 12:35 82 16 157/77 H 91 01/19/21 12:20 80 18 90 01/19/21 11:40 37.5 C 89 20 141/88 H 92 Code Status & VTE Plan VTE Prophylaxis Plan VTE Prophylaxis will be ordered: Yes
[2021-01-20] MEDS: HEPARIN SOD 5,000 UNIT/0.5 ML VIAL SQ SCH ×2 (00:10→10:10)
[2021-01-20] MEDS: SOD PHOSPHATE/SOD BIPHOSPHATE ENEMA 132 ML BTL PR SCH ×2 (00:27→03:09)
[2021-01-20] MEDS: MoRPHine SULFATE 4 MG/ML 1 ML CARP\\VIAL IV PRN (01:35)
[2021-01-20] MEDS ORDERED: ALBUTEROL HFA 8 GM INHALER INH PRN (02:46)
[2021-01-20] MEDS ORDERED: amLODIPine BESYLATE 5 MG TAB PO SCH (02:46)
[2021-01-20] MEDS: SODIUM CHLORIDE 0.9% 1000ML 1,000 ML IV SCH ×2 (03:18→14:26)
[2021-01-20] MEDS ORDERED: PROMETHAZINE HCL 12.5 MG in SODIUM CHLORIDE 0.9% 50 ML IV PRN (03:31)
[2021-01-20] MEDS ORDERED: MoRPHine SULFATE 2 MG/ML CARP IV PRN (03:31)
[2021-01-20] MEDS ORDERED: amLODIPine BESYLATE 5 MG TAB PO ONE (03:32)
[2021-01-20] MEDS: ACETAMINOPHEN 325 MG TAB PO PRN ×2 (04:00→14:02)
[2021-01-20] MEDS: oxyCODONE HCL IR 5 MG TAB (IMMEDIATE RELEASE) PO PRN ×2 (05:42→13:47)
[2021-01-20 06:24] LABS: Mean Corpuscular Hgb Conc 34.2 g/dL (32-36); Mean Corpuscular Volume 87.8 fL (80-100); Mean Platelet Volume 10.5 fL (7.4-10.4); Platelet Count 304 K/uL (130-400); RDW Standard Deviation 42.1 fL (36.4-46.3); Red Blood Count 4.33 M/uL (4.2-5.4)
[2021-01-20] MEDS ORDERED: PANTOprazole 40 MG TAB PO SCH (06:30)
[2021-01-20 06:46] LABS: BUN Creatinine Ratio 14.7 (10-20); Calcium 8.8 mg/dl (8.5-10.1); Creatinine Clr Calc Pharmacy 51.4 ml/min; Est GFR (African American) 93.2 ml/min; Est GFR (Non-African American) 80.4 ml/min; Magnesium 2.7 mg/dl (1.8-2.4); Potassium 3.9 mmol/L (3.5-5.1)
[2021-01-20 06:47] LABS: Phosphorus 3.1 mg/dl (2.5-4.9)
[2021-01-20] MEDS ORDERED: lisinopril 10 MG TAB PO SCH (09:00)
[2021-01-20] MEDS: MINERAL OIL ENEMA 133 ML BTL PR SCH ×2 (11:06→13:47)
--- NOTE | 2021-01-20 11:51 | Electrocardiogram Report ---
Test Reason : Blood Pressure : / mmHG Vent. Rate : 082 BPM Atrial Rate : 082 BPM P-R Int : 176 ms QRS Dur : 136 ms QT Int : 400 ms P-R-T Axes : 064 -19 094 degrees QTc Int : 467 ms Normal sinus rhythm Left atrial enlargement Left bundle branch block Abnormal ECG When compared with ECG of 17-JUL-2020 09:55, Questionable change in QRS axis Confirmed by William Valdez ([id number]) on 01/20/2021 11:51:34 AM Referred By: REFERRED SELF Confirmed By:William Valdez
--- NOTE | 2021-01-20 12:10 | Gastrointestinal Consultation ---
Date of Consultation January 20, 2021 Assessment & Plan (1) Diffuse abdominal pain: (2) Colon obstruction: (3) Constipation: likely secondary to recent immobility from fractures; appears to be improving now recs: --obtain KUB now --if no further obstruction, can advance diet as tolerated and have outpatient follow up in 1 week or less --if still has persistent obstruction, then keep NPO and continue with fleet enemas and will likely need daily KUBs and bowel rest and possible inpatient colonoscopy on monday 01/22. Thank you for allowing me to participate in the care of this patient History of Present Illness Attending Physician: Ran Quinones MD History of Present Illness 85 yo female with hx recent vertebral compression fx and rib fx on tramadol here with constipation x [address] A/P shows possible large bowel obstruction vs ileus. She was given fleet enemas and suppositories and laxatives in the hospital and has had several bowel movements since. Her abdominal pains and bloating have improved significantly and she feels better now. currently NPO labs reviewed. Allergies Allergy/AdvReac Type Severity Reaction Status Date / Time Sulfa (Sulfonamide Allergy Unknown UNKNOWN Verified 01/19/21 12:34 Antibiotics) fluticasone AdvReac Intermediate YEAST Verified 01/19/21 12:34 INFECTION Home Medications Medication Instructions Recorded Confirmed Type albuterol sulfate 90 mcg/actuation 2 puff INHALATION QID PRN 12/21/17 01/19/21 History aerosol inhaler (Ventolin HFA) aspirin 81 mg tablet,delayed 81 mg PO Q2D 12/21/17 01/19/21 History release calcium carbonate-vitamin D3 600 1 cap PO QAM 12/21/17 01/19/21 History mg calcium-200 unit capsule (Calcium 600 + D(3)) multivitamin 1 tab PO QAM 12/21/17 01/19/21 History amlodipine 2.5 mg tablet 2.5 mg PO HS 01/16/21 01/19/21 History omeprazole 20 mg capsule,delayed 20 mg PO DAILYBB 01/16/21 01/19/21 History release tramadol 50 mg tablet 50 mg PO Q6 PRN 01/16/21 01/19/21 History lactobacillus combination no.4 3 3,000 mmu cells PO QAM 01/19/21 01/19/21 History billion cell capsule (Probiotic) Patient History Medical History Anxiety Chronic headaches Chronic obstructive pulmonary disease USES INH 3-4 TIMES PER WEEK Diabetes mellitus, type 2 DIET CONTROLLED GERD (gastroesophageal reflux disease) Hyperlipidemia Osteoarthritis Vertigo Surgical History History of dilatation and curettage History of facial surgery 1969 History of tooth extraction Hx of cataract surgery RIGHT Social History Smoking Status: Former smoker Tobacco Type: Cigarettes Second Hand Exposure: No; Hx Alcohol Use: No Hx Substance Use: No Preferred Language: Albanian Communication Ability: Effective 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 Beliefs That Will Affect Care: None Current Living Situation: Spouse Other Information That Helps Us Care for You: No Feels Safe at Home: Yes Safety Concerns: Feels Safe At This Time Assistive Devices: Glasses Review of Systems Constitutional: no fever, no chills and no weight loss Eyes: as per Subjective / HPI Ear, Nose, Mouth, Throat: as per Subjective / HPI Respiratory: no dyspnea and no dyspnea on exertion Cardiovascular: no chest pain and no palpitations Gastrointestinal: as per Subjective / HPI Musculoskeletal: no joint pain and no swelling Integumentary: no rash and no lesions Neurologic: no numbness and no paresthesia Psychiatric: no depression and no anxiety Endocrine: no fatigue Hematologic / Lymphatic: no easy bleeding and no easy bruising Physical Exam Constitutional: WD/WN, vitals as above Eyes: EOM intact bilaterally Neck: normal visual inspection Respiratory: normal respiratory effort, lungs clear to auscultation Cardiovascular: RRR, no murmur, no edema Gastrointestinal (Abdomen): Inspection/Auscultation: abdomen normal to inspection; abdomen not distended Percussion/Palpation: abdomen soft; abdomen nontender and no hepatosplenomegaly Musculoskeletal: Extremities: no cyanosis Gait: normal gait Skin: no rashes, warm and dry Neurologic: moves all extremities Psychiatric: A+Ox3, euthymic affect Results & Data ([facility]) Vital Signs (Past 12 Hours) Vital Signs Temp Pulse Pulse Pulse Resp BP BP 01/20/21 11:50 36.8 C 77 16 168/72 H 01/20/21 07:37 36.9 C 78 16 144/66 H 01/20/21 04:06 93 H 01/20/21 02:47 37.0 C 85 18 186/74 H 01/20/21 02:00 79 18 163/67 H 01/20/21 01:30 89 20 174/78 H Pulse Ox 01/20/21 11:50 91 01/20/21 07:37 96 01/20/21 04:06 01/20/21 02:47 99 01/20/21 02:00 97 01/20/21 01:30 97 PG Care Time/CCT Total # of Minutes Spent Total Time Spent with Patient: Total time spent is greater than 50% in coordination of care (as documented) at patient's floor/unit and/or counseling patient: Coding Level of Care Code 74823 Initial Inpt Care Lvl 3 Diagnoses Diffuse abdominal pain R10.84 Colon obstruction K56.609 Constipation K59.00
--- NOTE | 2021-01-20 12:26 | XRay Report ---
KUB CLINICAL HISTORY: Colonic obstruction. FINDINGS: 2 AP supine abdominal radiographs are correlated with abdominal CT dated 01/19/2021. There i s a nonobstructed abdominal bowel gas pattern. Rtfi-ni-[id number] fecal retention is noted in the colon . No evidence of intraperitoneal free air is seen on these supine images. There are no abnormal abdom inal calcifications. Tiny phleboliths are seen in the pelvis. The skeletal structures are osteopenic and appear intact. There is advanced into sacral spondylosis as well as mild scoliosis. IMPRESSION: Nonobstructed bowel gas pattern. Electronically signed by: Bijan Munoz M.D. 01/20/2021 12:25 PM
--- NOTE | 2021-01-20 17:56 | Discharge Summary ---
Date of Service January 20, 2021 Admission HPI Per Admitting Provider 85-year-old lady with PMH of recent diagnosis of rib fracture and compression fracture of vertebrae on scheduled tramadol since last 5 days, diverticulosis, last colonoscopy in 1999 per patient, sees her doctor for leaky valve and hypertension presented to our ED 01/19 for inability to pass stool since last 4 days. Patient has tried several [id number]-[id number] laxatives but could not move bowel. But patient moved bowel in the ED. GI was consulted in the ED who recommended Fleet enema over the night and evaluation for possible colonoscopy tomorrow. Patient reports belly pain but improving after movement of bowel in the ED, belly still bloated, dizziness. Patient denies any fever/headache/weakness/cough/chest pain/feeling of heart racing/increased swelling of her legs/numbness or tingling anywhere in the body/bruises or wounds anywhere in the body. Patient quit smoking in 1994, does not drink alcohol or use illegal drugs. Patient is full code. Patient has no history of belly surgery in the past. Patient vomited once prior to coming to the hospital. Admission Exam Per Admitting Provider GENERAL: Alert and oriented x3. NAD, on RA. HEENT: No pallor, no icterus. Pupils equal, round and reactive to light. Oral mucosa moist. NECK: No JVD, no neck masses. HEART: S1 and S2 heard. Regular rate and rhythm. Systolic murmur over aortic and pulmonic area, no gallop. RESPIRATORY SYSTEM: Normal AP diameter. No accessory muscle use. No wheezing, no crackles. ABDOMEN: Soft, bowel sounds present, RLQ tender, abdomen bloated with hyperactive bowel sounds. CENTRAL NERVOUS SYSTEM: Alert and oriented x3. No facial droop. Speech is clear. Obeys simple commands. Moves extremities. EXTREMITIES: 1+ BLE edema, no erythema seen. Principal Diagnosis Bowel obstruction Constipation Discharge Exam GENERAL: Alert and oriented x3. NAD, on RA. HEENT: No pallor, no icterus. Pupils equal, round and reactive to light. Oral mucosa moist. NECK: No JVD, no neck masses. HEART: S1 and S2 heard. Regular rate and rhythm. Systolic murmur over aortic and pulmonic area, no gallop. RESPIRATORY SYSTEM: Normal AP diameter. No accessory muscle use. No wheezing, no crackles. ABDOMEN: Soft, bowel sounds present, nontender, normal bowel sounds.. CENTRAL NERVOUS SYSTEM: Alert and oriented x3. No facial droop. Speech is clear. Obeys simple commands. Moves extremities. EXTREMITIES: 1+ BLE edema, no erythema seen. Discharge Data Allergies Allergy/AdvReac Type Severity Reaction Status Date / Time Sulfa (Sulfonamide Allergy Unknown UNKNOWN Verified 01/19/21 12:34 Antibiotics) fluticasone AdvReac Intermediate YEAST Verified 01/19/21 12:34 INFECTION Consultations 01/19/21 16:59 ED Decision to Admit Stat 01/20/21 08:07 Consult Gastroenterology Routine Ordered Studies 01/19/21 11:58 CT abd pelvis IV con only Stat Hospital Course (1) Colon obstruction: 85-year-old lady with PMH of recent diagnosis of rib fracture and compression fracture of vertebrae on scheduled tramadol since last 5 days, diverticulosis, last colonoscopy in 1999 per patient, sees her doctor for leaky valve and hypertension presented to our ED 01/19 for inability to pass stool since last 4 days. She was managed for the following while in the hospital: Constipation Abnormal proximal sigmoid colon per imaging Patient not able to move bowel since last 4 to 5 days despite trying various walg-qkl-ujrrasg laxatives Patient moved bowel in the ED after suppository, feeling still bloated and has right lower quadrant tenderness GI aware, recommended Fleet enema over the night, evaluation tomorrow for possible colonoscopy. N.p.o., IV fluids Hypertension Blood pressure elevated at 166/87 at presentation likely secondary to acute stress We will resume her home medication Continue to monitor Hyponatremia Sodium level at 128 at presentation likely secondary to decreased intake and vomiting Sodium 134 on the day of discharge Leukocytosis Likely secondary to acute distress No fever, no signs of infection at present. Trended down. Patient was discharged with the following instruction at the time discharge: Follow-up with your primary care physician within a week time. Follow-up with your GI doctor in within a week time. Your blood pressure has been higher while inpatient, a new medication lisinopril has been added. Take medications as prescribed. Total Time Total Time Spent Total Time Spent (In Minutes): 40 Discharge Plan Discharge Items Patient Disposition: Home - Self-Care Reason For Visit: CONSTIPATION Discharge Diagnosis: Constipation Bowel obstruction Condition on Discharge: Fair Activity: Resume your previous activity Non-emergency contact: Primary Care Provider Call non-emergency contact if: you have any medication questions and your symptoms worsen Follow-up/Referrals: Andriy Briggs MD [Primary Care Provider] - Diet: Heart Healthy Addtl Attending Provider Instructions: Follow-up with your primary care physician within a week time. Follow-up with your GI doctor in within a week time. Your blood pressure has been higher while inpatient, a new medication lisinopril has been added. Take medications as prescribed. Pending Studies at Discharge: No Stand-Alone Forms: My [facility] [employer], Smoking Cessation Medications and DC Order Prescriptions: New lisinopril 10 mg Tablet 10 mg PO QAM 30 Days Qty: 30 RF: 0 Continued multivitamin Tablet 1 tab PO QAM RF: 0 aspirin 81 mg Tablet,Delayed Release (Dr/Ec) 81 mg PO Q2D RF: 0 albuterol sulfate [Ventolin HFA] 90 mcg/actuation Hfa Aerosol Inhaler 2 puff INHALATION QID PRN (Reason: Shortness Of Breath) RF: 0 Calcium 600 + D(3) 600 mg calcium- 200 unit Capsule 1 cap PO QAM RF: 0 Probiotic 3 billion cell Capsule 3,000 mmu cells PO QAM RF: 0 amlodipine 2.5 mg tablet 2.5 mg PO HS RF: 0 tramadol 50 mg tablet 50 mg PO Q6 PRN (Reason: Pain) RF: 0 omeprazole 20 mg capsule,delayed release(DR/EC) 20 mg PO DAILYBB RF: 0 Discharge Orders: Discharge Order (Routine); Ordered 01/20/21 Ordered By: Ran Quinones Admission Data Admit Date/Time: 01/19/21 17:40 Attending Provider: Ran Quinones Admit Provider: Ran Quinones Primary Care Provider: Andriy Briggs Other Providers: Ran Quinones ; Chuck Chinchilla Other Interventions: Discharge Summary Assessment (RN) Last Done: 01/20/21 17:44
== END 2021-01-20 18:46 | disposition home or self-care (01) | DRG 389 ==
LOC: ED 11:36 → 2W 01-20 00:48

== ENCOUNTER 2022-06-20 20:06 | Inpatient (IN) ==
[2022-06-20] MEDS ORDERED: methylPREDNISolone 125 MG/2 ML VIAL IV STA (20:26)
--- NOTE | 2022-06-20 20:29 | Emergency Department Note ---
History of Present Illness General Chief complaint: Shortness of Breath/Dyspnea Stated complaint: Cough Time Seen by Provider: 06/20/22 20:14 History of Present Illness 87-year-old female presents emergency department was seen earlier today and diagnosed with COPD exacerbation and rhinovirus, discharged on prednisone, states that she went home was feeling well this evening she ate dinner had a coughing episode that was not hemoptysis and then had shortness of breath. Patient was given DuoNeb treatment x2 by EMS and states some improvement. Patient denies pleuritic chest pain denies nausea vomiting diarrhea fever. There are no other mitigating or alleviating factors Home Medications Medication Instructions Recorded Confirmed Type albuterol sulfate 90 mcg/actuation 2 puff inhalation QID PRN 12/21/17 06/20/22 History aerosol inhaler (Ventolin HFA) Shortness Of Breath aspirin 81 mg tablet,delayed 81 mg PO Q2D 12/21/17 06/20/22 History release calcium carbonate 600 mg-vitamin 1 cap PO QAM 12/21/17 06/20/22 History D3 5 mcg (200 unit) capsule (Calcium 600 + D(3)) multivitamin 1 tab PO QAM 12/21/17 06/20/22 History amlodipine 2.5 mg tablet 2.5 mg PO HS 01/16/21 06/20/22 History omeprazole 20 mg capsule,delayed 20 mg PO DAILYBB 01/16/21 06/20/22 History release tramadol 50 mg tablet 50 mg PO Q6 PRN Pain 01/16/21 01/19/21 History lactobacillus combination no.4 3 3,000 mmu cells PO QAM 01/19/21 06/20/22 History billion cell capsule (Probiotic) prednisone 20 mg tablet 20 mg PO BID 5 days #10 tabs 06/20/22 06/20/22 Rx Allergies Allergy/AdvReac Type Severity Reaction Status Date / Time Sulfa (Sulfonamide Allergy Unknown UNKNOWN Verified 01/19/21 12:34 Antibiotics) fluticasone AdvReac Intermediate YEAST Verified 01/19/21 12:34 INFECTION Past Med/Surg History Medical History Anxiety Chronic headaches Chronic obstructive pulmonary disease USES INH 3-4 TIMES PER WEEK Diabetes mellitus, type 2 DIET CONTROLLED GERD (gastroesophageal reflux disease) Hyperlipidemia Osteoarthritis Vertigo Surgical History History of dilatation and curettage History of facial surgery 1969 History of tooth extraction Hx of cataract surgery RIGHT Social History Smoking Status: Former smoker Tobacco Type: Cigarettes Second Hand Exposure: No; Hx Alcohol Use: No Hx Substance Use: No Preferred Language: Slovak Communication Ability: Effective Python Consultant Required: No Beliefs That Will Affect Care: None Current Living Situation: Spouse Feels Safe at Home: Yes Assistive Devices: Glasses Physical Exam Vital Signs Vital Signs - 24 hr 06/20/22 20:09 06/20/22 20:16 06/20/22 20:28 Temperature 36.7 C Temperature Source Oral Pulse Rate 114 H 115 H Respiratory Rate 20 Respiratory Effort / Characteristics Non-Labored Respiratory Depth Normal Respiratory Pattern Regular Blood Pressure 136/72 Blood Pressure Mean 93 Pulse Oximetry 94 95 Oxygen Delivery Method Room Air Room Air Sepsis Recent Fever Within 48 Hours No Sepsis New/Unexplained Change in Mental Status No Sepsis Action Taken by Nursing No Action Required 06/20/22 20:29 06/20/22 20:31 Temperature Temperature Source Pulse Rate Respiratory Rate Respiratory Effort / Characteristics Non-Labored Spontaneous Respiratory Depth Normal Respiratory Pattern Regular Blood Pressure Blood Pressure Mean Pulse Oximetry 95 Oxygen Delivery Method Room Air Room Air Sepsis Recent Fever Within 48 Hours Sepsis New/Unexplained Change in Mental Status Sepsis Action Taken by Nursing GENERAL: Patient is awake alert in no acute distress patient is resting comfortably and showing no signs of anxiety EYES: The conjunctivae are clear. The pupils are round and reactive. EARS, NOSE, MOUTH AND THROAT: The nose is without any evidence of any deformity. Mucous membranes are moist. Tongue is midline. NECK: The neck is nontender and supple. RESPIRATORY: Normal respiratory effort is noted there is no evidence of wheezing rhonchi or rales CARDIOVASCULAR: Tachycardic rate and rhythm noted there no murmurs rubs or dubon ps normal S1 normal S2. GASTROINTESTINAL: The abdomen is soft. Abdomen is nontender. PELVIS: The Pelvis is stable. No tenderness to palpation is noted. BACK: No midline tenderness or or step-off noted range of motion in flexion extension as well as rotation no signs of muscle spasm noted MUSCULOSKELETAL/EXTREMITIES: There is no evidence of gross deformity full range of motion is noted in the hips and shoulders. SKIN: There is no obvious evidence of any rash. There are no petechiae, pallor o r cyanosis noted. NEUROLOGIC: Patient is awake alert and oriented x3 strength is symmetric Course Administered Medications Discontinued Medications Methylprednisolone (Methylprednisolone 125 Mg/2 Ml Vial) 125 mg IV NOW STA Stop: 06/20/22 20:27 Last Admin: 06/20/22 20:34 Dose: 125 mg Documented By: JON Medical Decision Making Medical Records Attestation: I reviewed the patient's medical records. Home Medications Current Medication List: was personally reviewed by me Laboratory Data Attestation: I reviewed the patient's lab results. Labs reviewed by me are unremarkable 06/20/22 20:21 06/20/22 20:21 Lab Results 06/20/22 06/20/22 06/20/22 Range/Units 20:21 20:21 20:21 WBC 6.89 (4.8-10.8) K/ul RBC 4.88 (4.20-5.40) M/uL Hgb 14.2 (12.0-16.0) g/dl Hct 43.2 (37.0-47.0) % MCV 88.5 (80.0-100.0) fL MCH 29.1 (25.0-34.0) pg MCHC 32.9 (32.0-36.0) g/dL RDW Std Deviation 40.2 (36.4-46.3) fL RDW Coeff of Fernando 12.4 (11.5-14.5) % Plt Count 275 (130-400) K/uL MPV 10.9 (9.4-12.4) fL Immature Gran % (Auto) 0.4 % Neut % (Auto) 88.7 % Lymph % (Auto) 9.6 % [place] % (Auto) 1.2 % Eos % (Auto) 0.0 % Baso % (Auto) 0.1 % Neut # (Auto) 6.11 (1.40-6.50) K/uL Lymph # (Auto) 0.66 L (1.2-3.4) K/uL [place] # (Auto) 0.08 L (0.11-0.59) K/uL Eos # (Auto) 0.00 (0-0.50) K/uL Baso # (Auto) 0.01 (0-0.2) K/uL Immature Gran # (Auto) 0.03 (0.01-0.20) K/uL PT 10.8 (9.0-12.0) Seconds INR 1.0 (0.9-1.1) APTT 27.3 (21.0-31.0) Seconds PTT Ratio 1.0 Carbon Dioxide 25 (21-32) mmol/L BUN 15 (6-23) mg/dl Creatinine 0.89 (0.6-1.2) mg/dl Est Cr Clr Drug Dosing 34.6 ml/min Est GFR ( Amer) 67.1 ml/min Est GFR (Non-Af Amer) 57.9 ml/min BUN/Creatinine Ratio 16.9 (10-20) Glucose 281 H (70-99(Fasting)) mg/dl Calcium 9.6 (8.5-10.1) mg/dl Magnesium 2.0 (1.7-2.4) mg/dl Total Bilirubin 0.8 (0.2-1.0) mg/dl AST 17 (13-39) U/L ALT 14 (7-52) U/L Alkaline Phosphatase 54 (34-104) U/L Troponin I High Sens 16.1 H D (0-14) pg/ml Total Protein 7.3 (6.0-8.3) gm/dl Albumin 4.4 (3.4-5.0) gm/dl Globulin 2.9 (2.5-4.0) gm/dl Albumin/Globulin Ratio 1.5 (0.9-2) SARS-CoV-2, RNA, NAAT (NEGATIVE) 06/20/22 Range/Units 20:38 WBC (4.8-10.8) K/ul RBC (4.20-5.40) M/uL Hgb (12.0-16.0) g/dl Hct (37.0-47.0) % MCV (80.0-100.0) fL MCH (25.0-34.0) pg MCHC (32.0-36.0) g/dL RDW Std Deviation (36.4-46.3) fL RDW Coeff of Fernando (11.5-14.5) % Plt Count (130-400) K/uL MPV (9.4-12.4) fL Immature Gran % (Auto) % Neut % (Auto) % Lymph % (Auto) % [place] % (Auto) % Eos % (Auto) % Baso % (Auto) % Neut # (Auto) (1.40-6.50) K/uL Lymph # (Auto) (1.2-3.4) K/uL [place] # (Auto) (0.11-0.59) K/uL Eos # (Auto) (0-0.50) K/uL Baso # (Auto) (0-0.2) K/uL Immature Gran # (Auto) (0.01-0.20) K/uL PT (9.0-12.0) Seconds INR (0.9-1.1) APTT (21.0-31.0) Seconds PTT Ratio Carbon Dioxide (21-32) mmol/L BUN (6-23) mg/dl Creatinine (0.6-1.2) mg/dl Est Cr Clr Drug Dosing ml/min Est GFR ( Amer) ml/min Est GFR (Non-Af Amer) ml/min BUN/Creatinine Ratio (10-20) Glucose (70-99(Fasting)) mg/dl Calcium (8.5-10.1) mg/dl Magnesium (1.7-2.4) mg/dl Total Bilirubin (0.2-1.0) mg/dl AST (13-39) U/L ALT (7-52) U/L Alkaline Phosphatase (34-104) U/L Troponin I High Sens (0-14) pg/ml Total Protein (6.0-8.3) gm/dl Albumin (3.4-5.0) gm/dl Globulin (2.5-4.0) gm/dl Albumin/Globulin Ratio (0.9-2) SARS-CoV-2, RNA, NAAT NEGATIVE (NEGATIVE) Imaging Data Attestation: I personally reviewed and interpreted this imaging study as follows: My Impression: Chest x-ray interpreted by me COPD changes ECG Data Attestation: I personally reviewed and interpreted this ECG as follows: Additional Comments: EKG interpreted by me sinus tachycardia, rate of 112, left bundle branch block, no obvious ST segment elevation or depression, normal axis Telemetry was ordered by me and interpreted as sinus tachycardia rate of 109 MDM Narrative Medical decision making differential diagnosis COPD exacerbation, pneumonia, electrolyte abnormality, cardiac dysrhythmia, viral uri Plan is to check labs, EKG, chest x-ray, give Solu-Medrol, neb treatments EMS records were reviewed by me External medical records were reviewed by me Patient's prior presentation today was reviewed by me Patient will be admitted for COPD exacerbation and rhinovirus [facility] & Plan COPD (chronic obstructive pulmonary disease), Rhinovirus Discharge Plan Visit Data Chief Complaint: Shortness of Breath/Dyspnea Stated Complaint: Cough ED Provider: Chano Muniz Discharge Problem: COPD (chronic obstructive pulmonary disease), Rhinovirus Patient Disposition: Admitted As Inpatient Forms Stand Alone Forms: My [facility] Prescriptions Prescriptions: No Action multivitamin Tablet 1 tab PO QAM aspirin 81 mg Tablet,Delayed Release (Dr/Ec) 81 mg PO Q2D albuterol sulfate [Ventolin HFA] 90 mcg/actuation Hfa Aerosol Inhaler 2 puff INHALATION QID PRN (Reason: Shortness Of Breath) Calcium 600 + D(3) 600 mg calcium- 200 unit Capsule 1 cap PO QAM Probiotic 3 billion cell Capsule 3,000 mmu cells PO QAM amlodipine 2.5 mg tablet 2.5 mg PO HS tramadol 50 mg tablet 50 mg PO Q6 PRN (Reason: Pain) omeprazole 20 mg capsule,delayed release(DR/EC) 20 mg PO DAILYBB prednisone 20 mg tablet 20 mg PO BID 5 Days Qty: 10 0RF Referrals Referrals: Andriy Briggs MD [Primary Care Provider] -
[2022-06-20 20:58] LABS: Albumin Globulin Ratio 1.5 (0.9-2); Albumin Level 4.4 gm/dl (3.4-5.0); BUN Creatinine Ratio 16.9 (10-20); Bilirubin,Total 0.8 mg/dl (0.2-1.0); Calcium 9.6 mg/dl (8.5-10.1); Creatinine Clr Calc Pharmacy 34.6 ml/min; Est GFR (African American) 67.1 ml/min; Est GFR (Non-African American) 57.9 ml/min; Globulin 2.9 gm/dl (2.5-4.0); Total Protein 7.3 gm/dl (6.0-8.3)
[2022-06-20] MEDS ORDERED: LACTATED RINGER'S 1,000 ML IV ONE (20:59)
[2022-06-20] MEDS ORDERED: BENZONATATE 100 MG CAPSULE PO ONE (21:07)
[2022-06-20 21:11] LABS: Basophils # (auto) 0.01 K/uL (0-0.2); Basophils % (auto) 0.1 %; Hematocrit (blood only) 43.2 % (37.0-47.0); Hemoglobin 14.2 g/dl (12.0-16.0); Immature Granulocytes # (auto) 0.03 K/uL (0.01-0.20); Immature Granulocytes % (auto) 0.4 %; Lymphocytes # (auto) 0.66 K/uL (1.2-3.4); Lymphocytes % (auto) 9.6 %; Mean Corpuscular Hemoglobin 29.1 pg (25.0-34.0); Mean Corpuscular Hgb Conc 32.9 g/dL (32.0-36.0); Mean Corpuscular Volume 88.5 fL (80.0-100.0); Mean Platelet Volume 10.9 fL (9.4-12.4); Monocytes # (auto) 0.08 K/uL (0.11-0.59); Monocytes % (auto) 1.2 %; Neutrophils # (auto) 6.11 K/uL (1.40-6.50); Neutrophils % (auto) 88.7 %; Platelet Count 275 K/uL (130-400); RDW Coefficient of Variation 12.4 % (11.5-14.5); RDW Standard Deviation 40.2 fL (36.4-46.3); Red Blood Count 4.88 M/uL (4.20-5.40); White Blood Count 6.89 K/ul (4.8-10.8)
[2022-06-20 21:14] LABS: Partial Thromboplastin Time 27.3 Seconds (21.0-31.0); Prothrombin Time 10.8 Seconds (9.0-12.0)
[2022-06-20] MEDS ORDERED: DOXYCYCLINE HYCLATE 100 MG in DEXTROSE 5% 100 ML IV STA (21:53)
[2022-06-20 21:55] LABS: Troponin I High Sensitivity 16.1 pg/ml (0-14)
--- NOTE | 2022-06-20 21:58 | History & Physical Report ---
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 DM2 diet-controlled, elevated secondary to recent steroid Rx, well-controlled at baseline as of recent outpatient hemoglobin A1c of 6.2 last January 2022 Skin bruising/ecchymosis from aspirin Rx constipation predominant IBS, stable on regimen past tobacco abuse Medical telemetry Doxycycline in place of azithromycin given prolonged QTc, nebs RTC, prednisone course CT chest PE study Pulmonary consult if without improvement Facilitate nighttime amlodipine and titrate as needed Discontinue home aspirin given bruising and absence of clinical indication Basal bolus insulin, ISS BG goal 1 10-1 40, carb count coverage, update hemoglobin A1c DVT prophylaxis. Lovenox subcu Full code Patient daughter requesting updates from providers. Ms. Alix Lopesdominickym, contact #[phone]. Text document was generated using [employer] voice recognition software. It may contain grammatical or spelling errors. Kindly contact undersigned for clarification of any documentation item in question. History of Present Illness Chief Complaint: Worsening shortness of breath Primary Care Provider: Andriy Briggs MD History obtained from patient and records. Medical history significant for COPD, valvular heart disease (mild MR/TR ), chronic LBBB, pulmonary hypertension, hyperlipidemia, DM2 diet-controlled, constipation predominant IBS, past tobacco abuse. Last confinement January 2021 for bowel obstruction/constipation resolved with conservative management. 2 days ago, patient noted wheezing and shortness of breath symptoms. Junky cough productive of clear sputum. Not sure about sick contacts. residing at personal care facility currently admitted for pneumonia and COVID. Has received COVID-19 vaccination. No chest pain. Patient started home Z-Mak medication. Sputum later noted to be yellow, worsening shortness of breath especially on exertion. Patient seen at the ER this morning. No pneumonia on chest x-ray. Patient tested positive for rhinovirus. Admission offered by ER provider as per patient but patient preferred to go ho co. Patient discharged on prednisone course for presumptive COPD exacerbation. Patient returned to ER for worsening symptoms after suppertime. IV Solu-Medrol administered at the ER. Medical History as above Surgical History : D&C, facial fracture surgery Family History : RA, Breast cancer, dementia, leukemia Personal/Social history : Past tobacco abuse, no EtOH intake, retired [employer] employee Allergies Allergy/AdvReac Type Severity Reaction Status Date / Time Sulfa (Sulfonamide Allergy Unknown UNKNOWN Verified 01/19/21 12:34 Antibiotics) fluticasone AdvReac Intermediate YEAST Verified 01/19/21 12:34 INFECTION Home Medications Medication Instructions Recorded Confirmed Type albuterol sulfate 90 mcg/actuation 2 puff inhalation QID PRN 12/21/17 06/20/22 History aerosol inhaler (Ventolin HFA) Shortness Of Breath aspirin 81 mg tablet,delayed 81 mg PO Q2D 12/21/17 06/20/22 History release calcium carbonate 600 mg-vitamin 1 cap PO QAM 12/21/17 06/20/22 History D3 5 mcg (200 unit) capsule (Calcium 600 + D(3)) multivitamin 1 tab PO QAM 12/21/17 06/20/22 History amlodipine 2.5 mg tablet 2.5 mg PO HS 01/16/21 06/20/22 History omeprazole 20 mg capsule,delayed 20 mg PO DAILYBB 01/16/21 06/20/22 History release tramadol 50 mg tablet 50 mg PO Q6 PRN Pain 01/16/21 01/19/21 History lactobacillus combination no.4 3 3,000 mmu cells PO QAM 01/19/21 06/20/22 Histor y billion cell capsule (Probiotic) prednisone 20 mg tablet 20 mg PO BID 5 days #10 tabs 06/20/22 06/20/22 Rx linaclotide 290 mcg capsule 290 mcg PO DAILY 06/21/22 06/21/22 History (Linzess) tiotropium bromide 18 mcg capsule 18 mcg inhalation DAILY 06/21/22 06/21/22 History with inhalation device (Spiriva with HandiHaler) Past Med/Surg History Medical History Anxiety Chronic headaches Chronic obstructive pulmonary disease USES INH 3-4 TIMES PER WEEK Diabetes mellitus, type 2 DIET CONTROLLED GERD (gastroesophageal reflux disease) Hyperlipidemia Osteoarthritis Vertigo Surgical History History of dilatation and curettage History of facial surgery 1969 History of tooth extraction Hx of cataract surgery RIGHT Social History Smoking Status: Former smoker Tobacco Type: Cigarettes Second Hand Exposure: No; Hx Alcohol Use: No Hx Substance Use: No Preferred Language: Greek Communication Ability: Effective Embedded Systems Designer Required: No Beliefs That Will Affect Care: Religion Religion Beliefs: Jew, Temple Current Living Situation: Alone Feels Safe at Home: Yes Assistive Devices: None Review of Systems Review of Systems: As per HPI, bruising from aspirin home medication, all other systems reviewed and negative Physical Exam Physical Exam: GENERAL: Comfortable, pleasant, no respiratory distress SKIN: Normal color, warm HEENT: Bespectacled, [place] palpebral conjunctivae, no ptosis, dry buccal mucosa NECK : Supple, no tenderness CHEST : Decreased breath sounds, no tenderness HEART : Tachycardic, no obvious murmurs ABDOMEN: no distention, nontender EXTREMITIES : No LE swelling/tenderness, no other conspicuous deformities noted NEUROLOGIC : Coherent, no facial asymmetry, no other gross focality Results & Data Results & Data ([facility]) Vital Signs (Past 12 Hours) Vital Signs Temp Pulse Resp BP Pulse Ox O2 Del Method 06/20/22 20:31 95 Room Air 06/20/22 20:29 Room Air 06/20/22 20:28 95 Room Air 06/20/22 20:16 115 H 06/20/22 20:09 36.7 C 114 H 20 136/72 94 Room Air Laboratory Results Laboratory Results WBC 6.89 K/ul (4.8-10.8) 06/20/22 20:21 RBC 4.88 M/uL (4.20-5.40) 06/20/22 20:21 Hgb 14.2 g/dl (12.0-16.0) 06/20/22 20:21 Hct 43.2 % (37.0-47.0) 06/20/22 20:21 MCV 88.5 fL (80.0-100.0) 06/20/22 20:21 MCH 29.1 pg (25.0-34.0) 06/20/22 20:21 MCHC 32.9 g/dL (32.0-36.0) 06/20/22 20:21 RDW Std Deviation 40.2 fL (36.4-46.3) 06/20/22 20: RDW Coeff of Fernando 12.4 % (11.5-14.5) 06/20/22 20: Plt Count 275 K/uL (130-400) 06/20/22 20: MPV 10.9 fL (9.4-12.4) 06/20/22 20: Immature Gran % (Auto) 0.4 % 06/20/22 20: Neut % (Auto) 88.7 % 06/20/22 20: Lymph % (Auto) 9.6 % 06/20/22 20: [place] % (Auto) 1.2 % 06/20/22: Eos % (Auto) 0.0 % 06/20/22: Baso % (Auto) 0.1 % 06/20/22: Neut # (Auto) 6.11 K/uL (1.40-6.50) 06/20/22 20: Lymph # (Auto) 0.66 K/uL (1.2-3.4) L 06/20/22 20: [place] # (Auto) 0.08 K/uL (0.11-0.59) L 06/20/22 20: Eos # (Auto) 0.00 K/uL (0-0.50) 06/20/22 20: Baso # (Auto) 0.01 K/uL (0-0.2) 06/20/22 20: Immature Gran # (Auto) 0.03 K/uL (0.01-0.20) 06/20/22 20: PT 10.8 Seconds (9.0-12.0) 06/20/22 20: INR 1.0 (0.9-1.1) 06/20/22 20: APTT 27.3 Seconds (21.0-31.0) 06/20/22 20: PTT Ratio 1.0 06/20/22 20: Carbon Dioxide 25 mmol/L (21-32) 06/20/22 20: BUN 15 mg/dl (6-23) 06/20/22 20: Creatinine 0.89 mg/dl (0.6-1.2) 06/20/22 20:21 Est Cr Clr Drug Dosing 34.6 ml/min 06/20/22 20:21 Est GFR ( Amer) 67.1 ml/min 06/20/22 20:21 Est GFR (Non-Af Amer) 57.9 ml/min 06/20/22 20:21 BUN/Creatinine Ratio 16.9 (10-20) 06/20/22 20:21 Glucose 281 mg/dl (70-99(Fasting)) H 06/20/22 20:21 Calcium 9.6 mg/dl (8.5-10.1) 06/20/22 20:21 Magnesium 2.0 mg/dl (1.7-2.4) 06/20/22 20:21 Total Bilirubin 0.8 mg/dl (0.2-1.0) 06/20/22 20:21 AST 17 U/L (13-39) 06/20/22 20:21 ALT 14 U/L (7-52) 06/20/22 20:21 Alkaline Phosphatase 54 U/L (34-104) 06/20/22 20:21 Troponin I High Sens 16.1 pg/ml (0-14) H D 06/20/22 20:21 Total Protein 7.3 gm/dl (6.0-8.3) 06/20/22 20:21 Albumin 4.4 gm/dl (3.4-5.0) 06/20/22 20:21 Globulin 2.9 gm/dl (2.5-4.0) 06/20/22 20:21 Albumin/Globulin Ratio 1.5 (0.9-2) 06/20/22 20:21 SARS-CoV-2, RNA, NAAT NEGATIVE (NEGATIVE) 06/20/22 20:38 Diagnostic Findings Chest x-ray as per my interpretation: Hyperinflation EKG as per my interpretation : Rate 110, sinus tachycardia, normal axis, LBBB, QTc 490
[2022-06-20] MEDS ORDERED: OPTIRAY 320 500ml IV ONE (22:01)
[2022-06-20] MEDS ORDERED: LANTUS PER UNIT CHARGE SQ STA (22:02)
--- NOTE | 2022-06-20 22:49 | CT Scan Report ---
Exam(s): CTA CHEST EXAM: CT Angiography Chest With Intravenous Contrast CLINICAL HISTORY: Reason for exam: sob. TECHNIQUE: Axial computed tomographic angiography images of the chest with intravenous contrast. CTDI is 19.09 mGy and DLP is 254.78 mGy-cm. Automated exposure control was utilized for the study. A dose lowering technique was utilized adhering to the principles of ALARA. MIP reconstructed images were created and reviewed. COMPARISON: CT chest angiogram 01/16/2021. FINDINGS: Pulmonary arteries: No pulmonary embolism. Aorta: No acute findings. No thoracic aortic aneurysm. Lungs: Moderate centrilobular emphysematous change of the lungs. No mass. Pleural space: Unremarkable. No significant effusion. No pneumothorax. Heart: Coronary artery atherosclerotic calcifications. No significant pericardial effusion. No evidence of RV dysfunction. Bones/joints: Technically age indeterminate compression fractures of T6, T7, T8, and T9 with exaggerated focal kyphosis. Soft tissues: Unremarkable. Lymph nodes: Unremarkable. No enlarged lymph nodes. IMPRESSION: 1. No pulmonary embolism. 2. Moderate centrilobular emphysematous change of the lungs. 3. Technically age indeterminate compression fractures of T6, T7, T8, and T9 with exaggerated focal kyphosis. Recommend correlation for point tenderness. Consider evaluation with MRI as clinically warranted. 4. Coronary artery atherosclerotic calcifications. Electronically signed by: Umberto Chilel MD 06/20/22 22:48 PM
[2022-06-20] MEDS ORDERED: GLUCOSE 10 TAB/TUBE PO PRN (23:18)
[2022-06-20] MEDS ORDERED: GLUCOSE 40% GEL 15 GM TUBE PO PRN (23:18)
[2022-06-20] MEDS ORDERED: traMADol HCL 50 MG TABLET PO PRN (23:18)
[2022-06-20] MEDS ORDERED: DEXTROSE 50% 50 ML SYRINGE IV PRN (23:18)
[2022-06-20] MEDS ORDERED: GLUCAGON FOR INJ 1 MG VIAL SQ PRN (23:18)
[2022-06-20] MEDS ORDERED: ACETAMINOPHEN 325 MG TAB PO PRN (23:18)
[2022-06-20] MEDS ORDERED: CARBOHYDRATES FOR HYPOGLYCEMIA PO PRN (23:18)
[2022-06-20 23:24] LABS: Potassium 4.1 mmol/L (3.5-5.1)
[2022-06-20] MEDS: IPRATROPIUM BROMIDE NEB SOLN 0.02% 2.5 ML VIAL INH SCH (23:59)
[2022-06-20] MEDS: LEVALBUTEROL 1.25MG/0.5ML NEB INH SCH (23:59)
[2022-06-21] MEDS: INSULIN ASPART PER UNIT CHARGE SC SCH ×5 (00:27→21:53)
[2022-06-21] MEDS ORDERED: XOPENEX/ATROVENT 1.25mg/0.5MG NEB COMBO NEB SCH (01:00)
[2022-06-21] MEDS: amLODIPine BESYLATE 5 MG TAB PO SCH ×2 (01:27→22:00)
[2022-06-21] MEDS ORDERED: cloNIDine HCL 0.1 MG TAB PO ONE (01:51)
[2022-06-21 05:55] LABS: Basophils # (auto) 0.01 K/uL (0-0.2); Basophils % (auto) 0.1 %; Hemoglobin 12.7 g/dl (12.0-16.0); Immature Granulocytes # (auto) 0.07 K/uL (0.01-0.20); Immature Granulocytes % (auto) 0.6 %; Lymphocytes # (auto) 0.92 K/uL (1.2-3.4); Lymphocytes % (auto) 7.6 %; Mean Corpuscular Hemoglobin 29.3 pg (25.0-34.0); Mean Corpuscular Hgb Conc 33.4 g/dL (32.0-36.0); Mean Corpuscular Volume 87.6 fL (80.0-100.0); Mean Platelet Volume 10.4 fL (9.4-12.4); Monocytes # (auto) 0.24 K/uL (0.11-0.59); Neutrophils # (auto) 10.92 K/uL (1.40-6.50); Neutrophils % (auto) 89.7 %; Platelet Count 261 K/uL (130-400); RDW Coefficient of Variation 12.5 % (11.5-14.5); RDW Standard Deviation 40.3 fL (36.4-46.3); Red Blood Count 4.34 M/uL (4.20-5.40); White Blood Count 12.16 K/ul (4.8-10.8)
[2022-06-21 06:11] LABS: BUN Creatinine Ratio 17.9 (10-20); Calcium 9.3 mg/dl (8.5-10.1); Creatinine Clr Calc Pharmacy 36.6 ml/min; Est GFR (African American) 71.9 ml/min; Est GFR (Non-African American) 62.1 ml/min; Potassium 4.4 mmol/L (3.5-5.1)
[2022-06-21] MEDS: LINACLOTIDE 145 MCG CAPSULE PO SCH ×2 (06:39→22:01)
[2022-06-21] MEDS: POLYETHYLENE (MIRALAX) 17 GM PACK PO SCH (06:48)
[2022-06-21] MEDS: PANTOprazole 40 MG TAB PO SCH (06:52)
[2022-06-21] MEDS: LEVALBUTEROL 1.25MG/0.5ML NEB INH SCH ×3 (07:39→19:14)
[2022-06-21] MEDS: IPRATROPIUM BROMIDE NEB SOLN 0.02% 2.5 ML VIAL INH SCH ×3 (07:39→19:14)
[2022-06-21] MEDS: DOXYCYCLINE HYCLATE 100 MG CAP PO SCH ×2 (08:12→22:01)
[2022-06-21] MEDS: ADVANCED PROBIOTIC 1250 MG CAPSULE PO SCH (08:12)
[2022-06-21] MEDS: MULTIVITAMIN TAB PO SCH (08:12)
[2022-06-21] MEDS: predniSONE 20 MG TAB PO SCH (08:13)
[2022-06-21] MEDS: ENOXAPARIN INJ 40 MG/0.4 ML SYR SQ SCH (08:13)
[2022-06-21 08:37] LABS: Estimated Average Glucose 137 mg/dl; Hemoglobin A1C 6.4 % (4.5-5.6)
[2022-06-21] MEDS ORDERED: busPIRone 5 MG TAB PO SCH (09:00)
--- NOTE | 2022-06-21 13:40 | Hospitalist Progress Note ---
Date of Service June 21, 2022 Assessment & Plan (1) COPD exacerbation: Plan: Present on admission with SOB and cough Mostly due to viral upper respiratory infection Testing positive on biofire for rhinovirus CXR imaging reviewed by me where there is no radiographic evidence of pneumonia. CTA chest showed no pulmonary embolism. Moderate centrilobular emphysematous change of the lungs. Received IV doxycycline and Solumedrol on admission She was starting on doxycycline for possible complicated bronchitis with secondary bacterial infection Continue prednisone 40mg daily and neb treatment Will add guaifenesin and flutter valve Continue monitor closely Hypertension BP stable Continue home BP meds Continue monitor BP Hyperlipidemia Continue statin Rx Diabetes type 2 Most recent hba1c 6.4 Continue Lantus and insulin sliding scale Continue monitor BS DVT prophylaxis. Lovenox subcu Code status Full code Disposition Plan to discharge home tomorrow Patient daughter requesting updates from providers. Ms. Alix Perez, contact #[phone]. Admission and Anticipated Discharge Date Admission Date: June 20, 2022 Subjective Pt was seen and examined for follow up sob Sitting in bed with no acute distress Pt said that her cough is better She said that she is having sore throat Her is in the hospital and I updated her Denies any chest pain, palpitation, dizziness and fever Review of Systems 2 Review of Systems: All systems reviewed & are unremarkable except as noted in Subjective Physical Exam Physical Exam: General- No acute distress Head- atraumatic Eyes- PERRL, EOMI, ENT- oropharynx clear Neck- supple, no JVD Lungs- clear to auscultation Heart- regular rhythm; no murmur Abdomen- normal bowel sounds, soft, nontender Extremities- no calf tenderness Neuro- alert, oriented x 3; PERRL, EOMI; no facial palsy; no dysarthria Skin- warm & dry Results & Data Results & Data ([facility]) Vital Signs (Past 12 Hours) Vital Signs Temp Pulse Pulse Resp BP BP Pulse Ox 06/21/22 11:37 36.8 C 94 H 18 121/71 95 06/21/22 08:06 92 H 20 94 06/21/22 07:40 85 24 92 06/21/22 07:22 36.5 C 92 H 22 142/68 H 95 06/21/22 07:13 92 H 06/21/22 04:00 36.4 C L 96 H 18 125/65 91 03/11/23 03:59 36.4 C L 96 H 16 129/63 90 O2 Del Method 06/21/22 11:37 Room Air 06/21/22 08:06 Room Air 06/21/22 07:40 Room Air 06/21/22 07:22 Room Air 06/21/22 07:13 06/21/22 04:00 Room Air 06/21/22 03:59 Room Air
--- NOTE | 2022-06-21 14:18 | Electrocardiogram Report ---
Test Reason : Blood Pressure : / mmHG Vent. Rate : 112 BPM Atrial Rate : 112 BPM P-R Int : 160 ms QRS Dur : 128 ms QT Int : 362 ms P-R-T Axes : 057 019 112 degrees QTc Int : 494 ms Poor data quality, interpretation may be adversely affected Sinus tachycardia Left bundle branch block Abnormal ECG When compared with ECG of 20-JUN-2022 07:45, (unconfirmed) No significant change was found Confirmed by Redd Gibson ([id number]) on 06/21/2022 2:18:00 PM Referred By: REFERRED SELF Confirmed By:Redd Gibson
[2022-06-21] MEDS: guaiFENesin 200 MG TAB PO SCH (14:39)
--- NOTE | 2022-06-21 15:02 | XRay Report ---
XR chest 1V portable CLINICAL HISTORY: Dyspnea TECHNIQUE: Single frontal radiograph of the chest was obtained. Comparison: Comparison is made to chest radiograph 06/20/2022 FINDINGS: No lines and tubes are seen. Calcified aortic knob is seen. The lungs are clear. Emphysema is noted. No evidence of pleural effusion or pneumothorax. IMPRESSION: No acute chest disease. ACT 112: Negative or not required by law. Electronically signed by: Henry Hernandes M.D. 06/21/2022 3:00 PM
[2022-06-21] MEDS: CHLORASEPTIC 1.4% SOLN 180 ML BTL MT PRN (20:04)
[2022-06-21] MEDS ORDERED: LANTUS PER UNIT CHARGE SQ SCH (21:00)
[2022-06-22] MEDS: LEVALBUTEROL 1.25MG/0.5ML NEB INH SCH ×3 (00:07→13:27)
[2022-06-22] MEDS: IPRATROPIUM BROMIDE NEB SOLN 0.02% 2.5 ML VIAL INH SCH ×3 (00:07→13:27)
[2022-06-22] MEDS: guaiFENesin 200 MG TAB PO SCH ×3 (01:32→14:33)
[2022-06-22] MEDS: CHLORASEPTIC 1.4% SOLN 180 ML BTL MT PRN (06:35)
[2022-06-22] MEDS: PANTOprazole 40 MG TAB PO SCH (06:36)
[2022-06-22] MEDS: LINACLOTIDE 145 MCG CAPSULE PO SCH (06:37)
[2022-06-22] MEDS: POLYETHYLENE (MIRALAX) 17 GM PACK PO SCH (06:38)
[2022-06-22] MEDS: DOXYCYCLINE HYCLATE 100 MG CAP PO SCH (08:06)
[2022-06-22] MEDS: predniSONE 20 MG TAB PO SCH (08:07)
[2022-06-22] MEDS: ADVANCED PROBIOTIC 1250 MG CAPSULE PO SCH (08:07)
[2022-06-22] MEDS: MULTIVITAMIN TAB PO SCH (08:07)
[2022-06-22] MEDS: ENOXAPARIN INJ 40 MG/0.4 ML SYR SQ SCH (08:08)
[2022-06-22] MEDS: INSULIN ASPART PER UNIT CHARGE SC SCH ×2 (08:47→12:43)
--- NOTE | 2022-06-22 16:00 | Discharge Summary ---
Date of Service June 22, 2022 Admission HPI Per Admitting Provider History obtained from patient and records. Medical history significant for COPD, valvular heart disease (mild MR/TR ), chronic LBBB, pulmonary hypertension, hyperlipidemia, DM2 diet-controlled, constipation predominant IBS, past tobacco abuse. Last confinement January 2021 for bowel obstruction/constipation resolved with conservative management. 2 days ago, patient noted wheezing and shortness of breath symptoms. Junky cough productive of clear sputum. Not sure about sick contacts. residing at personal care facility currently admitted for pneumonia and COVID. Has received COVID-19 vaccination. No chest pain. Patient started home Z-Mak medication. Sputum later noted to be yellow, worsening shortness of breath especially on exertion. Patient seen at the ER this morning. No pneumonia on chest x-ray. Patient tested positive for rhinovirus. Admission offered by ER provider as per patient but patient preferred to go home. Patient discharged on prednisone course for presumptive COPD exacerbation. Patient returned to ER for worsening symptoms after suppertime. IV Solu-Medrol administered at the ER. Medical History as above Surgical History : D&C, facial fracture surgery Family History : RA, Breast cancer, dementia, leukemia Personal/Social history : Past tobacco abuse, no EtOH intake, retired [employer] employee Admission Exam Per Admitting Provider GENERAL: Comfortable, pleasant, no respiratory distress SKIN: Normal color, warm HEENT: Bespectacled, [place] palpebral conjunctivae, no ptosis, dry buccal mucosa NECK : Supple, no tenderness CHEST : Decreased breath sounds, no tenderness HEART : Tachycardic, no obvious murmurs ABDOMEN: no distention, nontender EXTREMITIES : No LE swelling/tenderness, no other conspicuous deformities noted NEUROLOGIC : Coherent, no facial asymmetry, no other gross focality Principal Diagnosis COPD exacerbation Hypertension Hyperlipidemia Diabetes type 2 Discharge Exam General- No acute distress Head- atraumatic Eyes- PERRL, EOMI, ENT- oropharynx clear Neck- supple, no JVD Lungs- clear to auscultation Heart- regular rhythm; no murmur Abdomen- normal bowel sounds, soft, nontender Extremities- no calf tenderness Neuro- alert, oriented x 3; PERRL, EOMI; no facial palsy; no dysarthria Skin- warm & dry Discharge Data Allergies Allergy/AdvReac Type Severity Reaction Status Date / Time Sulfa (Sulfonamide Allergy Unknown UNKNOWN Verified 01/19/21 12:34 Antibiotics) fluticasone AdvReac Intermediate YEAST Verified 01/19/21 12:34 INFECTION Consultations 06/20/22 21:08 ED Decision to Admit Stat Ordered Studies 06/20/22 21:50 CT angio chest PE protocol Stat Laboratory Results WBC 12.16 K/ul (4.8-10.8) H 06/21/22 05:41 RBC 4.34 M/uL (4.20-5.40) 06/21/22 05:41 Hgb 12.7 g/dl (12.0-16.0) 06/21/22 05:41 Hct 38.0 % (37.0-47.0) 06/21/22 05:41 MCV 87.6 fL (80.0-100.0) 06/21/22 05:41 MCH 29.3 pg (25.0-34.0) 06/21/22 05:41 MCHC 33.4 g/dL (32.0-36.0) 06/21/22 05:41 RDW Std Deviation 40.3 fL (36.4-46.3) 06/21/22 05:41 RDW Coeff of Fernando 12.5 % (11.5-14.5) 06/21/22 05:41 Plt Count 261 K/uL (130-400) 06/21/22 05:41 MPV 10.4 fL (9.4-12.4) 06/21/22 05:41 Immature Gran % (Auto) 0.6 % 06/21/22 05:41 Neut % (Auto) 89.7 % 06/21/22 05:41 Lymph % (Auto) 7.6 % 06/21/22 05:41 [place] % (Auto) 2.0 % 06/21/22 05:41 Eos % (Auto) 0.0 % 06/21/22 05:41 Baso % (Auto) 0.1 % 06/21/22 05:41 Neut # (Auto) 10.92 K/uL (1.40-6.50) H 06/21/22 05:41 Lymph # (Auto) 0.92 K/uL (1.2-3.4) L 06/21/22 05:41 [place] # (Auto) 0.24 K/uL (0.11-0.59) 06/21/22 05:41 Eos # (Auto) 0.00 K/uL (0-0.50) 06/21/22 05:41 Baso # (Auto) 0.01 K/uL (0-0.2) 06/21/22 05:41 Immature Gran # (Auto) 0.07 K/uL (0.01-0.20) 06/21/22 05:41 PT 10.8 Seconds (9.0-12.0) 06/20/22 20:21 INR 1.0 (0.9-1.1) 06/20/22 20:21 APTT 27.3 Seconds (21.0-31.0) 06/20/22 20:21 PTT Ratio 1.0 06/20/22 20:21 Sodium 137 mmol/L (136-145) 06/21/22 05:41 Potassium 4.4 mmol/L (3.5-5.1) 06/21/22 05:41 Chloride 104 mmol/L (98-107) 06/21/22 05:41 Carbon Dioxide 28 mmol/L (21-32) 06/21/22 05:41 Anion Gap 5 (3-11) 06/21/22 05:41 BUN 15 mg/dl (6-23) 06/21/22 05:41 Creatinine 0.84 mg/dl (0.6-1.2) 06/21/22 05:41 Est Cr Clr Drug Dosing 36.6 ml/min 06/21/22 05:41 Est GFR ( Amer) 71.9 ml/min 06/21/22 05:41 Est GFR (Non-Af Amer) 62.1 ml/min 06/21/22 05:41 BUN/Creatinine Ratio 17.9 (10-20) 06/21/22 05:41 Glucose 178 mg/dl (70-99(Fasting)) H 06/21/22 05:41 POC Glucose 108 mg/dl (70-99) H 06/22/22 11:55 Estimat Average Glucose 137 mg/dl 06/20/22 21:15 Hemoglobin A1c 6.4 % (4.5-5.6) H 06/20/22 21:15 Calcium 9.3 mg/dl (8.5-10.1) 06/21/22 05:41 Magnesium 2.0 mg/dl (1.7-2.4) 06/20/22 20:21 Total Bilirubin 0.8 mg/dl (0.2-1.0) 06/20/22 20:21 AST 17 U/L (13-39) 06/20/22 20:21 ALT 14 U/L (7-52) 06/20/22 20:21 Alkaline Phosphatase 54 U/L (34-104) 06/20/22 20:21 Troponin I High Sens 16.1 pg/ml (0-14) H D 06/20/22 20:21 Total Protein 7.3 gm/dl (6.0-8.3) 06/20/22 20:21 Albumin 4.4 gm/dl (3.4-5.0) 06/20/22 20:21 Globulin 2.9 gm/dl (2.5-4.0) 06/20/22 20:21 Albumin/Globulin Ratio 1.5 (0.9-2) 06/20/22 20:21 SARS-CoV-2, RNA, NAAT NEGATIVE (NEGATIVE) 06/20/22 20:38 Impressions Chest X-Ray 06/20/22 20:14 XR chest 1V portable CLINICAL HISTORY: Dyspnea TECHNIQUE: Single frontal radiograph of the chest was obtained. Comparison: Comparison is made to chest radiograph 06/20/2022 FINDINGS: No lines and tubes are seen. Calcified aortic knob is seen. The lungs are clear. Emphysema is noted. No evidence of pleural effusion or pneumothorax. IMPRESSION: No acute chest disease. ACT 112: Negative or not required by law. Electronically signed by: Henry Hernandes M.D. 06/21/2022 3:00 PM Chest CTA 06/20/22 21:50 Exam(s): CTA CHEST EXAM: CT Angiography Chest With Intravenous Contrast CLINICAL HISTORY: Reason for exam: sob. TECHNIQUE: Axial computed tomographic angiography images of the chest with intravenous contrast. CTDI is 19.09 mGy and DLP is 254.78 mGy-cm. Automated exposure control was utilized for the study. A dose lowering technique was utilized adhering to the principles of ALARA. MIP reconstructed images were created and reviewed. COMPARISON: CT chest angiogram 01/16/2021. FINDINGS: Pulmonary arteries: No pulmonary embolism. Aorta: No acute findings. No thoracic aortic aneurysm. Lungs: Moderate centrilobular emphysematous change of the lungs. No mass. Pleural space: Unremarkable. No significant effusion. No pneumothorax. Heart: Coronary artery atherosclerotic calcifications. No significant pericardial effusion. No evidence of RV dysfunction. Bones/joints: Technically age indeterminate compression fractures of T6, T7, T8, and T9 with exaggerated focal kyphosis. Soft tissues: Unremarkable. Lymph nodes: Unremarkable. No enlarged lymph nodes. IMPRESSION: 1. No pulmonary embolism. 2. Moderate centrilobular emphysematous change of the lungs. 3. Technically age indeterminate compression fractures of T6, T7, T8, and T9 with exaggerated focal kyphosis. Recommend correlation for point tenderness. Consider evaluation with MRI as clinically warranted. 4. Coronary artery atherosclerotic calcifications. Electronically signed by: Umberto Chilel MD 06/20/22 22:48 PM Hospital Course (1) COPD exacerbation: Present on admission with SOB and cough Mostly due to viral upper respiratory infection Testing positive on biofire for rhinovirus CXR imaging reviewed by me where there is no radiographic evidence of pneumonia. CTA chest showed no pulmonary embolism. Moderate centrilobular emphysematous change of the lungs. Received IV doxycycline and Solumedrol on admission She was starting on doxycycline for possible complicated bronchitis with secondary bacterial infection, will complete total 5 days course Continue prednisone 40mg daily and neb treatment Continue guaifenesin and flutter valve Continue monitor closely Hypertension BP stable Continue home BP meds Continue monitor BP Hyperlipidemia Continue statin Rx Diabetes type 2 Most recent hba1c 6.4 Continue Lantus and insulin sliding scale Continue monitor BS Compression Fracture CT showed compression fractures of T6, T7, T8, and T9 with exaggerated focal kyphosis. Denies any back pain Follow up outpatient with Ortho DVT prophylaxis. Lovenox subcu Code status Full code Disposition Plan to discharge home today Patient daughter requesting updates from providers. Ms. Alix Perez, contact #[phone]. Total Time Total Time Spent Total Time Spent (In Minutes): 35 minutes Discharge Plan Discharge Items Patient Disposition: Home - Self-Care Reason For Visit: COPD EXACERBATION Discharge Diagnosis: COPD exacerbation Hypertension Hyperlipidemia Diabetes type 2 Activity: Resume your previous activity Non-emergency contact: Primary Care Provider Call non-emergency contact if: you have any medication questions Follow-up/Referrals: Andriy Briggs MD [Primary Care Provider] - Diet: Carb Consistent or DM2 Addtl Attending Provider Instructions: Follow up with your primary care provider within 1 week ( office will call you for the appointment) Continue flutter valve and incentive spirometry Complete the course of prednisone at home ( additional 3 -4 more days) Seek medical attention if your breathing worsening fall precaution Pending Studies at Discharge: No Stand-Alone Forms: [facility], Smoking Cessation Medications and DC Order Prescriptions: New doxycycline hyclate 100 mg Capsule 100 mg PO BID 2 Days Qty: 4 0RF guaifenesin 200 mg Tablet 200 mg PO Q8H PRN (Reason: cough) Qty: 30 0RF ipratropium-albuterol 0.5 mg-3 mg(2.5 mg base)/3 mL solution for nebulization 3 ml inhalation Q8H PRN (Reason: wheezing/SOB) Qty: 90 0RF Continued multivitamin Tablet 1 tab PO QAM aspirin 81 mg Tablet,Delayed Release (Dr/Ec) 81 mg PO Q2D albuterol sulfate [Ventolin HFA] 90 mcg/actuation Hfa Aerosol Inhaler 2 puff INHALATION QID PRN (Reason: Shortness Of Breath) Calcium 600 + D(3) 600 mg calcium- 200 unit Capsule 1 cap PO QAM Probiotic 3 billion cell Capsule 3,000 mmu cells PO QAM amlodipine 2.5 mg tablet 2.5 mg PO HS tramadol 50 mg tablet 50 mg PO Q6 PRN (Reason: Pain) omeprazole 20 mg capsule,delayed release(DR/EC) 20 mg PO DAILYBB prednisone 20 mg tablet 20 mg PO BID 5 Days Qty: 10 0RF Spiriva with HandiHaler 18 mcg capsule, w/inhalation device 18 mcg INHALATION DAILY Linzess 290 mcg capsule 290 mcg PO DAILY Discharge Orders: Discharge Order (Routine); Ordered 06/22/22 Ordered By: Brian Walters/Other Patient Handouts: Managing Type 2 Diabetes Admission Data Admit Date/Time: 06/20/22 21:59 Attending Provider: Brian Chase Admit Provider: Kevin Camacho Primary Care Provider: Andriy Briggs Other Providers: Kevin Camacho Other Interventions: Discharge Summary Assessment (RN) Last Done: 06/22/22 15:25
== END 2022-06-22 16:57 | disposition home or self-care (01) | DRG 191 ==
LOC: ED 20:06 → 2N 21:59